=== PATIENT | female | born 1990 | race Caucasian/White ===

== ENCOUNTER → 2018-08-30 | Outpatient (CLI) | payer OTHER ==
--- NOTE | 2018-08-30 16:36 | Diagnostic Imaging Report ---
PROCEDURE: MR angiography of the brain without the use of contrast. TECHNIQUE: 3D [id number] non contrast enhanced MR angiography of the head was performed. A source data was reformatted into rotating MIP projections. INDICATION: Migraine headaches and family history of aneurysms. COMPARISON: No prior MRA studies are available for comparison. FINDINGS: Distal internal carotid arteries are unremarkable. Distal vertebral arteries and basilar artery are unremarkable. The basilar tip is unremarkable. Anterior communicating artery is unremarkable. There are no aneurysms detected. MCAs are unremarkable. No stenosis is identified. IMPRESSION: Unremarkable MRA of the brain. Dictated by: Dictated on workstation # [id number]
== END ==
LOC: RAD 15:25
PROVIDERS: ATTEND Pediatrics
DX: G44.049 Chronic paroxysmal hemicrania, not intractable (principal); Z82.49 Family history of ischemic heart disease and other diseases of the circulatory system
CPT/HCPCS: 70544

== ENCOUNTER 2019-09-12 15:22 | Emergency (ER) | payer SELFPAY ==
[~2019-09-12] VITALS: Ht 160 cm; Wt 59.1 kg
--- NOTE | 2019-09-12 15:57 | ED Headache ---
General Stated Complaint: MIGRAINE,FAINTING Source: patient Exam Limitations: no limitations History of Present Illness Date Seen by Provider: September 12, 2019 Time Seen by Provider: 15:40 Initial Comments The patient is a pleasant 29-year-old female who is 23 weeks who presents for evaluation of a headache and possible fainting episode. She states that she has a history of chronic migraines and has had a migraine since earlier this morning which began gradually. She reports some sensitivity to light. At one point today she went to the bathroom and woke up to her family trying to wake her up while she laid on the bathroom floor. The right side of her head was somewhat sore and she believes that she hit her head on the side of the bathtub. She has had other migraines during this but did not seek medical treatment for them. She has had syncopal episodes during some of her previous pregnancies as well. She reports some mild nausea but no vomiting. She drove herself to the emergency department today. Timing/Duration: other (8 hours) Severity/Quality: moderate Location: temporal (right) Prior Headaches/Recent Trauma: frequent headaches, chronic headaches, head trauma < 24 hrs ago (hours after headache started) Modifying Factors: improves with exposure to light (makes it worse) Associated Symptoms: No confusion; fatigue; No fever/chills; loss of c onsciousness (she "thinks so"), nausea/vomiting (nausea, no vomiting); No numbness in legs/feet, No seizures, No stiff neck, No vision changes, No weakness Allergies and Home Medications Allergies Coded Allergies: codeine (Verified Allergy, Unknown, 09/12/19) Patient Home Medication List Home Medication List Reviewed: Yes Review of Systems Review of Systems Constitutional: no symptoms reported Eyes: No Symptoms Reported Ears, Nose, Mouth, Throat: no symptoms reported Respiratory: no symptoms reported Cardiovascular: syncope (suspected) Gastrointestinal: nausea; No vomiting Genitourinary: no symptoms reported Musculoskeletal: no symptoms reported Skin: no symptoms reported Psychiatric/Neurological: Headache All Other Systems Reviewed Negative Unless Noted: Yes Past Tdlacpl-Mzltuf-Pgidyd Hx Past Med/Social Hx: Reviewed Nursing Past Med/Soc Hx Patient Social History Recent Foreign Travel: No Contact w/Someone Who Travel: No Physical Exam Vital Signs Vital Signs - First Documented 09/12/19 15:30 Temp 36.7 Pulse 75 Resp 16 B/P (MAP) 103/52 (69) Pulse Ox 98 O2 Delivery Room Air Capillary Refill : Height, Weight, BMI Height: '" Weight: lbs. oz. kg; BMI Method: General Appearance: WD/WN, no apparent distress HEENT: PERRL/EOMI, normal ENT inspection, pharynx normal Neck: full range of motion, supple, tender lateral (right paraspinal); No tender midline Cardiovascular: regular rate, rhythm, no edema, no JVD Gastrointestinal: normal bowel sounds, non tender, soft, other (gravid abdomen consistent with dates) Back: normal inspection, no CVA tenderness, no vertebral tenderness Extremities: normal range of motion, non-tender, no pedal edema Psychiatric: alert, oriented x 3 Crainal Nerves: normal hearing, normal speech, PERRL Motor/Sensory: no motor deficit, no sensory deficit, no pronator drift Skin: normal color, warm/dry Progress/Results/Core Measures Results/Orders Lab Results Laboratory Tests Test 09/12/19 15:30 09/12/19 15:50 Range/Units Urine Color YELLOW Urine Clarity SL CLOUDY Urine pH 6.0 5-9 Urine Specific [place] 1.020 1.016-1.022 Urine Protein NEGATIVE NEGATIVE Urine Glucose (UA) NEGATIVE NEGATIVE Urine Ketones 2+ H NEGATIVE Urine Nitrite NEGATIVE NEGATIVE Urine Bilirubin NEGATIVE NEGATIVE Urine Urobilinogen 0.2 < = 1.0 MG/DL Urine Leukocyte Esterase 3+ H NEGATIVE Urine RBC (Auto) NEGATIVE NEGATIVE Urine RBC NONE /HPF Urine WBC 50-100 H /HPF Urine Squamous Epithelial Cells 25-50 H /HPF Urine Crystals NONE /LPF Urine Bacteria MODERATE H /HPF Urine Casts NONE /LPF Urine Mucus MODERATE H /LPF Urine Culture Indicated YES White Blood Count 10.8 4.3-11.0 10^3/uL Red Blood Count 3.94 L 4.35-5.85 10^6/uL Hemoglobin 11.6 11.5-16.0 G/DL Hematocrit 34 L 35-52 % Mean Corpuscular Volume 87 80-99 FL Mean Corpuscular Hemoglobin 29 25-34 PG Mean Corpuscular Hemoglobin Concent 34 32-36 G/DL Red Cell Distribution Width 14.3 10.0-14.5 % Platelet Count 205 130-400 10^3/uL Mean Platelet Volume 11.5 H 7.4-10.4 FL Neutrophils (%) (Auto) 84 H 42-75 % Lymphocytes (%) (Auto) 12 12-44 % Monocytes (%) (Auto) 4 0-12 % Eosinophils (%) (Auto) 1 0-10 % Basophils (%) (Auto) 0 0-10 % Neutrophils # (Auto) 9.1 H 1.8-7.8 X 10^3 Lymphocytes # (Auto) 1.3 1.0-4.0 X 10^3 Monocytes # (Auto) 0.8 0.0-1.0 X 10^3 Eosinophils # (Auto) 0.1 0.0-0.3 10^3/uL Basophils # (Auto) 0.0 0.0-0.1 10^3/uL Sodium Level 137 135-145 MMOL/L Potassium Level 3.8 3.6-5.0 MMOL/L Chloride Level 103 98-107 MMOL/L Carbon Dioxide Level 21 21-32 MMOL/L Anion Gap 13 5-14 MMOL/L Blood Urea Nitrogen 6 L 7-18 MG/DL Creatinine 0.41 L 0.60-1.30 MG/DL Estimat Glomerular Filtration Rate > 60 BUN/Creatinine Ratio 15 Glucose Level 77 70-105 MG/DL Calcium Level 8.3 L 8.5-10.1 MG/DL Corrected Calcium 8.7 8.5-10.1 MG/DL Total Bilirubin 0.3 0.1-1.0 MG/DL Aspartate Amino Transf (AST/SGOT) 14 5-34 U/L Alanine Aminotransferase (ALT/SGPT) 7 0-55 U/L Alkaline Phosphatase 66 40-136 U/L Total Protein 6.2 L 6.4-8.2 GM/DL Albumin 3.5 3.2-4.5 GM/DL My Orders Orders - WAI BUSH DO Ct Head/Cervical Spine Wo (09/12/19 15:49) Cbc With Automated Diff (09/12/19 15:49) Comprehensive Metabolic Panel (09/12/19 15:49) Ua Culture If Indicated (09/12/19 15:49) Ns Iv 1000 Ml (Sodium Chloride 0.9%) (09/12/19 16:00) Metoclopramide Injection (Reglan Injecti (09/12/19 16:00) Diphenhydramine Injection (Benadryl Inje (09/12/19 16:00) Acetaminophen Tablet (Tylenol Tablet) (09/12/19 16:00) Urine Culture (09/12/19 15:30) Ekg Tracing (09/12/19 16:27) Medications Given in ED Current Medications Medications Dose Ordered Sig/Sonali Route Start Time Stop Time Status Last Admin Dose Admin Acetaminophen 1,000 mg ONCE ONCE PO 09/12/19 16:00 09/12/19 16:02 DC 09/12/19 16:15 1,000 MG Diphenhydramine HCl 25 mg ONCE ONCE IVP 09/12/19 16:00 09/12/19 16:02 DC 09/12/19 16:15 25 MG Metoclopramide HCl 10 mg ONCE ONCE IVP 09/12/19 16:00 09/12/19 16:02 DC 09/12/19 16:15 10 MG Vital Signs/I&O 09/12/19 15:30 Temp 36.7 Pulse 75 Resp 16 B/P (MAP) 103/52 (69) Pulse Ox 98 O2 Delivery Room Air Progress Progress Note : Progress Note @9775 - the patient states that she would like to leave AGAINST MEDICAL ADVICE at this time. She understands that her CT head and neck have not been reviewed by the radiologist. Her lab results are unremarkable other than showing a possible UTI versus possible contaminated specimen. She will go home with a prescription for Macrobid. Advised the patient to follow-up with her FIELD OPERATIONS FARM MANAGER/PCP in the next 1-2 days and to return to the emergency Department immediately for new or worsening symptoms. She understands that she can return to the emergency department at any time. Departure Impression Primary Impression: Migraine Additional Impressions: Syncope UTI (urinary tract infection) Disposition: 07 AGAINST MEDICAL ADVICE Condition: Stable Departure-Patient Inst. Decision time for Depature: 16:47 Referrals: JON COULTER MD (PCP/Family) Primary Care Physician Patient Instructions: Migraines (DC), Syncope (Fainting), Urinary Tract Infection, Adult (DC) Add. Discharge Instructions: Although you chose to leave AGAINST MEDICAL ADVICE today you can return to the emergency department at any time. Follow-up with your doctor or your FIELD OPERATIONS FARM MANAGER in the next 1-2 days. Return to the emergency Department immediately for new or worsening symptoms. Take the prescribed medicine as directed. Drink plenty of water at home. Scripts Nitrofurantoin Monohyd/M-Cryst (Macrobid 100 mg Capsule) 100 Mg Capsule 1 TAB PO BID for 5 Days, #10 CAP Prov: WAI BUSH DO 09/12/19 WAI BUSH DO September 12, 2019 15:57
[2019-09-12] MEDS ORDERED: diphenhydrAMINE 50 MG/ML INJ (BENADRYL) IVP ONE (16:00)
[2019-09-12] MEDS ORDERED: METOCLOPRAMIDE INJ 10 MG/2 ML (REGLAN) IVP ONE (16:00)
[2019-09-12] MEDS ORDERED: ACETAMINOPHEN 500 MG TAB (TYLENOL) PO ONE (16:00)
[2019-09-12] MEDS ORDERED: NS IV 1000 ML 1,000 ML IV SCH (16:00)
[2019-09-12 16:05] LABS: BASOPHILS % (AUTO) 0 % (0-10); EOSINOPHILS # (AUTO) 0.1 10^3/uL (0.0-0.3); EOSINOPHILS % (AUTO) 1 % (0-10); HEMATOCRIT 34 % (35-52); HEMOGLOBIN 11.6 G/DL (11.5-16.0); LYMPHOCYTES # (AUTO) 1.3 X 10^3 (1.0-4.0); LYMPHOCYTES % (AUTO) 12 % (12-44); MEAN CORPUSCULAR HEMOGLOBIN 29 PG (25-34); MEAN CORPUSCULAR HGB CONC 34 G/DL (32-36); MEAN CORPUSCULAR VOLUME 87 FL (80-99); MEAN PLATELET VOLUME 11.5 FL (7.4-10.4); MONOCYTES # (AUTO) 0.8 X 10^3 (0.0-1.0); MONOCYTES % (AUTO) 4 % (0-12); NEUTROPHILS # (AUTO) 9.1 X 10^3 (1.8-7.8); NEUTROPHILS % (AUTO) 84 % (42-75); PLATELET COUNT 205 10^3/uL (130-400); RED CELL DISTRIBUTION WIDTH 14.3 % (10.0-14.5); WHITE BLOOD COUNT 10.8 10^3/uL (4.3-11.0)
[2019-09-12 16:09] LABS: BACTERIA,URINE MODERATE /HPF; BILIRUBIN,URINE NEGATIVE (NEGATIVE); CLARITY,URINE SL CLOUDY; COLOR,URINE YELLOW; GLUCOSE, URINE (UA) NEGATIVE (NEGATIVE); KETONES,URINE 2+ (NEGATIVE); LEUKOCYTE ESTERASE ,URINE 3+ (NEGATIVE); NITRITE,URINE NEGATIVE (NEGATIVE); PROTEIN,URINE NEGATIVE (NEGATIVE); SQUAMOUS EPITHELIAL CELL,UR 25-50 /HPF; WBC,URINE 50-100 /HPF
[2019-09-12 16:24] LABS: ALANINE AMINOTRANSFERASE 7 U/L (0-55); ALKALINE PHOSPHATASE 66 U/L (40-136); BILIRUBIN,TOTAL 0.3 MG/DL (0.1-1.0); BUN/CREATININE RATIO 15; CALCIUM 8.3 MG/DL (8.5-10.1); CARBON DIOXIDE 21 MMOL/L (21-32); CHLORIDE 103 MMOL/L (98-107); CREATININE SERUM 0.41 MG/DL (0.60-1.30); GFR ESTIMATED > 60; GLUCOSE 77 MG/DL (70-105); POTASSIUM 3.8 MMOL/L (3.6-5.0); SODIUM 137 MMOL/L (135-145); TOTAL PROTEIN 6.2 GM/DL (6.4-8.2)
[2019-09-12 16:25] LABS: ALBUMIN 3.5 GM/DL (3.2-4.5)
--- NOTE | 2019-09-12 16:35 | NUR ---
Patient called this RN into room and stated "I just want to go home." Patient informed that EKG and heart tones had not yet been completed and CT results were not back. Asked patient if she was feeling worse than before, and patient stated ,"No, I just want to go home." Informed patient that if she left now she would be leaving against medical advice and advised patient on risks of doing so. Patient verbalized understanding of risks of leaving AMA. Dr. Marsh informed of patient's decision, prescription for macrobid printed and given to patient prior to her departure from the ED. IV removed, patient signed AMA form and left the ED ambulatory.
[2019-09-12 16:43] VITALS: BP 95/57
[2019-09-12] MEDS ORDERED: NITR-65 PO (16:49)
--- NOTE | 2019-09-12 17:10 | Diagnostic Imaging Report ---
PROCEDURE: CT head and CT cervical spine without contrast. TECHNIQUE: Multiple contiguous axial images were obtained through the brain and cervical spine without the use of intravenous contrast. Sagittal and coronal reformations through the cervical spine were then performed. Auto Exposure Controls were utilized during the CT exam to meet ALARA standards for radiation dose reduction. INDICATION: Syncopal episode and fall striking the posterior aspect of the head. COMPARISON: No prior CT is available for comparison. FINDINGS: CT head: Ventricles and sulci are within normal limits. No sulcal effacement or midline shift is identified. No acute intra-axial or extra-axial hemorrhage is detected. Cisterns are patent. Visualized paranasal sinuses are clear apart from some mucosal thickening of right-sided ethmoid air cells. IMPRESSION: Paranasal sinus disease. No acute intracranial process is detected. CT cervical spine: Alignment is normal. No fracture or subluxation is identified. Prevertebral tissues are within normal limits. Odontoid is intact. IMPRESSION: No acute bony abnormality is detected. Dictated by: Dictated on workstation # [id number]
--- OUTSIDE RECORDS SUMMARY | 2019-09-12 19:55 | XMS REPORT | Summary of Care ---
Author Author [facility] er Organization [facility] er Address Unknown Phone Unavailable Care Team Providers Care Optometry Professor Name Role Phone JON COULTER MD PCP PCP MD, NO PCP Unavailable Encounter [facility] [id number] Date(s): 07/30/17 - 07/30/[address] [address] Discharge Disposition: Home - 01 Attending Physician: CHAYITO MENDEZ MD Admitting Physician: CHAYITO MENDEZ MD Vital Signs Most recent to 1 oldest [Reference Range]: Vital Signs Routine Assessment Status/Type (07/30/17 1:50 PM) Temperature 98.6 DegF [96.8-99.7 DegF] (07/30/17 1:50 PM) Temp Method Oral (07/30/17 1:50 PM) Blood Pressure 105/57 mmHg [90-180/50-90 mmHg] (07/30/17 1:50 PM) NIBP MAP Calc 73 (07/30/17 1:50 PM) Problem List Condition Effective Dates Status Health Status Informan t (Confirmed) 07/30/17 Active (Confirmed) 12/05/12 - 01/24/13 Resolved 1 (Confirmed) < 04/25/10 Resolved 1Added by Discern Expert Allergies, Adverse Reactions, Alerts Substance Reaction Severity Status codeine chest pain Active Medications cyclobenzaprine 5 mg oral tablet 1-2 tab, PO, Q8H (Every 8 hours), PRN Moderate Pain, # 20 TAB, 0 Refill(s), Rosalind cation: Moderate Pain, Pharmacy: [facility] [id number] Start Date: 07/30/17 Stop Date: 08/06/17 Status: Ordered Results HEMATOLOGY Most recent to 1 oldest [Reference Range]: WBC [4.0-11.0 8.5 x10'3/microL x10'3/microL] (07/30/17 1:43 PM) RBC [3.90-5.60 3.32 x10'6/microL x10'6/microL] *LOW* (07/30/17 1:43 PM) Hgb [12.0-16.0 g/dL] 9.7 g/dL *LOW* (07/30/17 1:43 PM) Hct [35-47 %] 30 % *LOW* (07/30/17 1:43 PM) Platelet [140-400 196 x10'3/microL x10'3/microL] (07/30/17 1:43 PM) MCV [81-99 fL] 90 fL (07/30/17 1:43 PM) MCH [27-34 pg] 29 pg (07/30/17 1:43 PM) MCHC [30-36 g/dL] 33 g/dL (07/30/17 1:43 PM) RDW [<=16.4 %] 13.0 % (07/30/17 1:43 PM) MPV [6.5-10.4 fL] 10.6 fL *HI* (07/30/17 1:43 PM) Neutrophils % [44-76 79 % %] *HI* (07/30/17 1:43 PM) Lymphocytes % [13-43 13 % %] (07/30/17 1:43 PM) Monocytes % [0-13 %] 7 % (07/30/17 1:43 PM) Eosinophils % [0-7 1 % %] (07/30/17 1:43 PM) Basophils % [0-3 %] 0 % (07/30/17 1:43 PM) Neutrophils Abs 6.7 x10'3/microL [1.4-7.2 (07/30/17 1:43 PM) x10'3/microL] Lymphocytes Abs 1.1 x10'3/microL [1.2-3.4 *LOW* x10'3/microL] (07/30/17 1:43 PM) Monocytes Abs 0.6 x10'3/microL [0.1-0.6 (07/30/17 1:43 PM) x10'3/microL] Eosinophils Abs 0.1 x10'3/microL [0.0-0.5 (07/30/17 1:43 PM) x10'3/microL] Basophils Abs 0.0 x10'3/microL [0.0-0.2 (07/30/17 1:43 PM) x10'3/microL] Immature Grans Abs 0.0 x10'3/microL [0.0-0.0 (07/30/17 1:43 PM) x10'3/microL] Immature 0 % Granulocytes % [0-0 (07/30/17 1:43 PM) %] URINE Most recent to 1 oldest [Reference Range]: UA Color Yellow (07/30/17 1:43 PM) UA pH [5.0-8.0] 6.0 (07/30/17 1:43 PM) UA Spec Grav 1.015 [1.001-1.030] (07/30/17 1:43 PM) UA Glucose [Negative Negative mg/dL mg/dL] (07/30/17 1:43 PM) UA Bili [Negative] Negative (07/30/17 1:43 PM) UA Ketones [Negative Negative mg/dL mg/dL] (07/30/17 1:43 PM) UA Blood [Negative] Negative (07/30/17 1:43 PM) UA Protein [Negative Negative mg/dL mg/dL] (07/30/17 1:43 PM) UA Nitrite Negative [Negative] (07/30/17 1:43 PM) UA Leuk Est Positive [Negative] *ABN* (07/30/17 1:43 PM) UA Urobilinogen 0.2 EU per dL [0.2-1.0 EU per dL] (07/30/17 1:43 PM) UA Spec Type Clean Catch (07/30/17 1:43 PM) UA WBC [0-5 /hpf] 0-5 /hpf (07/30/17 1:43 PM) UA Epithelial Few /hpf [Negative to Few (07/30/17 1:43 PM) /hpf] Microscopic? Yes *ABN* (07/30/17 1:43 PM) Culture? No (07/30/17 1:43 PM) Immunizations Given and Recorded Vaccine Date Status Refusal Reason diphtheria/pertussis, acel/tetanus adult 04/28/10 Given Procedures No data available for this section Social History No data available for this section Functional Status No data available for this section Assessment and Plan No data available for this section Hospital Discharge Instructions No data available for this section
--- OUTSIDE RECORDS SUMMARY | 2019-09-12 19:55 | XMS REPORT | Summary of Care ---
Author Author [facility] er Organization [facility] er Address Unknown Phone Unavailable Care Team Providers Care Director Of Field Service Name Role Phone JON COULTER MD PCP PCP MD, NO PCP Unavailable Encounter [facility] [id number] Date(s): 07/30/17 - 07/30/[address] [address] Discharge Disposition: Home - 01 Attending Physician: [...] 0 Refill(s), Rosalind cation: Moderate Pain, Pharmacy: [facility] [id number] Start Date: 07/30/17 Stop Date: 08/06/17 Status: [...]
--- OUTSIDE RECORDS SUMMARY | 2019-09-12 19:55 | XMS REPORT | Summary of Care ---
Author Author [facility] er Organization [facility] er Address Unknown Phone Unavailable Care Team Providers Care Survival Equipment Repairer Name Role Phone JON COULTER MD PCP PCP MD, NO PCP Unavailable Encounter [facility] [id number] Date(s): 08/06/17 - 08/06/[address] [address] Encounter Diagnosis Encounter for other suspected maternal and conditions ruled out (Final) - 29 weeks gestation of (Final) - Discharge Disposition: Home - 01 Attending Physician: CHAYITO MENDEZ MD Admitting Physician: CHAYITO MENDEZ MD Vital Signs Most recent to 1 oldest [Reference Range]: Vital Signs Routine Assessment Status/Type (08/06/17 4:13 PM) Temperature 98.3 DegF [96.8-99.7 DegF] (08/06/17 4:13 PM) Temp Method Oral (08/06/17 4:13 PM) Heart Rate 80 bpm (08/06/17 4:13 PM) Respiratory Rate 16 br/min [15-20 br/min] (08/06/17 4:13 PM) Blood Pressure 93/58 mmHg [90-180/50-90 mmHg] (08/06/17 4:13 PM) NIBP MAP Calc 70 (08/06/17 4:13 PM) Problem List Condition Effective Dates Status Health Status Informan t (Confirmed) 07/30/17 Active (Confirmed) 12/05/12 - 01/24/13 Resolved 1 (Confirmed) < 04/25/10 Resolved 1Added by Discern Expert Allergies, Adverse Reactions, Alerts Substance Reaction Severity Status codeine chest pain Active Medications No Known Medications Results URINE Most recent to 1 oldest [Reference Range]: UA Color Yellow (08/06/17 1:44 PM) UA pH [5.0-8.0] 6.0 (08/06/17 1:44 PM) UA Spec Grav 1.015 [1.001-1.030] (08/06/17 1:44 PM) UA Glucose [Negative Negative mg/dL mg/dL] (08/06/17 1:44 PM) UA Bili [Negative] Negative (08/06/17 1:44 PM) UA Ketones [Negative Negative mg/dL mg/dL] (08/06/17 1:44 PM) UA Blood [Negative] Negative (08/06/17 1:44 PM) UA Protein [Negative Negative mg/dL mg/dL] (08/06/17 1:44 PM) UA Nitrite Negative [Negative] (08/06/17 1:44 PM) UA Leuk Est Positive [Negative] *ABN* (08/06/17 1:44 PM) UA Urobilinogen 0.2 EU per dL [0.2-1.0 EU per dL] (08/06/17 1:44 PM) UA Spec Type Clean Catch (08/06/17 1:44 PM) UA WBC [0-5 /hpf] 0-5 /hpf (08/06/17 1:44 PM) UA Epithelial Few /hpf [Negative to Few (08/06/17 1:44 PM) /hpf] UA Mucous [None Present Seen] *ABN* (08/06/17 1:44 PM) Microscopic? Yes *ABN* (08/06/17 1:44 PM) Culture? No (08/06/17 1:44 PM) Immunizations Given and Recorded Vaccine Date Status Refusal Reason diphtheria/pertussis, acel/tetanus adult 04/28/10 Given Procedures No data available for this section Social History No data available for this section Functional Status No data available for this section Assessment and Plan No data available for this section Hospital Discharge Instructions No data available for this section
--- OUTSIDE RECORDS SUMMARY | 2019-09-12 19:55 | XMS REPORT | Summary of Care ---
Author Author [facility] er Organization [facility] er Address Unknown Phone Unavailable Care Team Providers Care Fire Safety Manager Name Role Phone JON COULTER MD PCP PCP , NO PCP Unavailable Encounter [facility] [id number] Date(s): 07/30/17 - 07/30/[address] [address] Encounter Diagnosis Other specified diseases and conditions complicating , childbirth and t he puerperium (Final) - Unspecified abdominal pain (Final) - 28 weeks gestation of (Final) - Discharge Disposition: [...] 0 Refill(s), Rosalind cation: Moderate Pain, Pharmacy: [facility] [id number] Start Date: 07/30/17 Stop Date: 08/06/17 Status: [...]
--- OUTSIDE RECORDS SUMMARY | 2019-09-12 19:55 | XMS REPORT | Summary of Care ---
Author Author [facility] er Organization [facility] er Address Unknown Phone Unavailable Care Team Providers Care Training Project Manager Name Role Phone JON COULTER MD PCP PCP , NO PCP Unavailable Encounter [facility] [id number] Date(s): 07/30/17 - 07/30/[address] [address] Encounter Diagnosis Other specified diseases and conditions [...] 0 Refill(s), Rosalind cation: Moderate Pain, Pharmacy: [facility] [id number] Start Date: 07/30/17 Stop Date: 08/06/17 Status: [...]
--- OUTSIDE RECORDS SUMMARY | 2019-09-12 19:55 | XMS REPORT | Summary of Care ---
Author Author [facility] er Organization [facility] er Address Unknown Phone Unavailable Care Team Providers Care Course Developer Name Role Phone JON COULTER MD PCP PCP MD, NO PCP Unavailable Encounter [facility] [id number] Date(s): 07/30/17 - 07/30/[address] [address] Discharge Disposition: Home - 01 Attending [...] 0 Refill(s), Rosalind cation: Moderate Pain, Pharmacy: [facility] [id number] Start Date: 07/30/17 Stop Date: 08/06/17 Status: [...]
--- OUTSIDE RECORDS SUMMARY | 2019-09-12 19:55 | XMS REPORT | CCD ---
Author Author [facility]HAEL [facility] er Address Unknown Phone Unavailable Care Team Providers Care Gospel Worker Name Role Phone SHAHRZAD RAI, JENNIFER Meneses CP [phone] PCP MD, NO PP Unavailable REFERRING MD, NO RP Unavailable Allergies, Adverse Reactions, Alerts Substance Reaction Status NKA Active Problem List Condition Effective Dates Status Pregnancy1 Active 1Added by Discern Expert Medications Medication Instructions Start Date End Date Status Lortab 5/500 1 TAB, PO, Q3H (Every 3 hours), PRN 04/28/2010 Ordered as needed for pain, # 30 TAB, 04/28/10 15:48:02 naproxen sodium 550 = 1 TAB, PO, Q8H (Every 8 hours), 011 Ordered mg oral tablet, PRN as needed for pain, # 2 0 TAB, extended release 04/28/10 15:47:47 Adacel 0.5 mL, SUSP, IM, ONE-TIME, 04/26/2010 04/28/2010 Completed 04/26/10 0:00:00 multivitamin, 1 TAB, PO, QDAY, TAB, 03/04/10 03/04/2010 Ordered 13:07:42 Immunizations Vaccine Date Status diphtheria/pertussis, acel/tetanus adult 04/28/2010 Auth (Verified) Vital Signs Most recent to oldest [Reference Range]: 1 Temperature [96.8-99.7 DegF] 97.1 DegF (04/28/2010 08:00:00) Temp Method Probe (04/28/2010 08:00:00) Heart Rate 79 bpm (04/28/2010 08:00:00) Heart Rate Location Auto BP (04/28/2010 08:00:00) Respiratory Rate [14-20 br/min] 18 br/min (04/28/2010 08:00:00) Inet NIBP Systolic [71-219 mmHg] 97 mmHg (04/28/2010 08:00:00) Inet NIBP Diastolic [50-90 mmHg] 62 mmHg (04/28/2010 08:00:00) NIBP MAP Calc 74 (04/28/2010 08:00:00) BP Location Arm, left (04/25/2010 23:25:00) Heart Rhythm Sinus/atrial rhythm (04/25/2010 23:25:00) Procedures Procedures Date Related Diagnosis Low cervical section 04/25/2010 00:00:00 Medical induction of labor 04/24/2010 00:00:00
--- OUTSIDE RECORDS SUMMARY | 2019-09-12 19:55 | XMS REPORT | CCD ---
Author Author [facility] Organization [facility] er Address Unknown Phone Unavailable Care Team Providers Care Bioinformatician Name Role Phone SHAHRZAD RAI, JENNIFER Meneses RP [phone] PCP MD, NO PP Unavailable Allergies, Adverse Reactions, Alerts Substance Reaction Status NKA Active Problem List Condition Effective Dates Status Pregnancy1 Active 1Added by Discern Expert Medications Medication Instructions Start Date End Date Status Adacel 0.5 mL, SUSP, IM, ONE-TIME, 04/26/2010 04/28/2010 Completed 04/26/10 0:00:00 Immunizations Vaccine Date Status diphtheria/pertussis, acel/tetanus adult 04/28/2010 Auth (Verified) Vital Signs Most recent to oldest [Reference Range]: 1 Temperature [96.8-99.7 DegF] 97.4 DegF (02/10/2010 22:00:00) Temp Method Oral (02/10/2010 22:00:00) Heart Rate 74 bpm (02/10/2010 22:00:00) Inet NIBP Systolic [71-219 mmHg] 117 mmHg (02/10/2010 22:00:00) Inet NIBP Diastolic [50-90 mmHg] 67 mmHg (02/10/2010 22:00:00) NIBP MAP Calc 84 (02/10/2010 22:00:00)
--- OUTSIDE RECORDS SUMMARY | 2019-09-12 19:56 | XMS REPORT | Summary of Care ---
Author Author [facility] er Organization [facility] er Address Unknown Phone Unavailable Care Team Providers Care Seed Cone Picker Name Role Phone JON COULTER MD PCP PCP , NO PCP Unavailable Encounter [facility] [id number] Date(s): 07/30/17 - 07/30/[id number] [place] [address] Encounter Diagnosis Other specified diseases and conditions [...] pain Active Medications No Known Medications Results HEMATOLOGY Most recent to 1 oldest [...]
--- OUTSIDE RECORDS SUMMARY | 2019-09-12 19:56 | XMS REPORT | Summary of Care ---
Author Author [facility] er Organization [facility] er Address Unknown Phone Unavailable Care Team Providers Care Machine Leather Trimmer Name Role Phone JON COULTER MD PCP PCP MD, NO PCP Unavailable Encounter [facility] [id number] Date(s): 08/06/17 - 08/06/[address] [address] Encounter Diagnosis Encounter for other suspected maternal [...]
--- OUTSIDE RECORDS SUMMARY | 2019-09-12 19:56 | XMS REPORT | Summary of Care ---
Author Author [facility] er Organization [facility] er Address Unknown Phone Unavailable Care Team Providers Care Plug Drill Operator Name Role Phone JON COULTER MD PCP PCP , NO PCP Unavailable Encounter [facility] [id number] Date(s): 08/13/17 - 08/13/[id number] [place] [address] Discharge Disposition: Home - 01 Attending Physician: SENDY SUNSHINE DO Admitting Physician: SENDY SUNSHINE DO Referring Physician: SENDY SUNSHINE DO Vital Signs No data available for this section Problem List Condition Effective Dates Status Health Status Informan t (Confirmed) 07/30/17 Active (Confirmed) 12/05/12 - 01/24/13 Resolved 1 (Confirmed) < 04/25/10 Resolved 1Added by Discern Expert Allergies, Adverse Reactions, Alerts Substance Reaction Severity Status codeine chest pain Active Medications No data available for this section Results HEMATOLOGY Most recent to 1 oldest [Reference Range]: WBC [4.0-11.0 10.6 x10'3/microL x10'3/microL] (08/13/17 12:37 PM) RBC [3.90-5.60 3.48 x10'6/microL x10'6/microL] *LOW* (08/13/17 12:37 PM) Hgb [12.0-16.0 g/dL] 10.1 g/dL *LOW* (08/13/17 12:37 PM) Hct [35-47 %] 31 % *LOW* (08/13/17 12:37 PM) Platelet [140-400 182 x10'3/microL x10'3/microL] (08/13/17 12:37 PM) MCV [81-99 fL] 89 fL (08/13/17 12:37 PM) MCH [27-34 pg] 29 pg (08/13/17 12:37 PM) MCHC [30-36 g/dL] 33 g/dL (08/13/17 12:37 PM) RDW [<=16.4 %] 13.4 % (08/13/17 12:37 PM) MPV [6.5-10.4 fL] 11.4 fL *HI* (08/13/17 12:37 PM) Neutrophils % [44-76 77 % %] *HI* (08/13/17 12:37 PM) Lymphocytes % [13-43 17 % %] (08/13/17 12:37 PM) Monocytes % [0-13 %] 4 % (08/13/17 12:37 PM) Eosinophils % [0-7 1 % %] (08/13/17 12:37 PM) Basophils % [0-3 %] 0 % (08/13/17 12:37 PM) Neutrophils Abs 8.2 x10'3/microL [1.4-7.2 *HI* x10'3/microL] (08/13/17 12:37 PM) Lymphocytes Abs 1.8 x10'3/microL [1.2-3.4 (08/13/17 12:37 PM) x10'3/microL] Monocytes Abs 0.4 x10'3/microL [0.1-0.6 (08/13/17 12:37 PM) x10'3/microL] Eosinophils Abs 0.2 x10'3/microL [0.0-0.5 (08/13/17 12:37 PM) x10'3/microL] Basophils Abs 0.0 x10'3/microL [0.0-0.2 (08/13/17 12:37 PM) x10'3/microL] Immature Grans Abs 0.1 x10'3/microL [0.0-0.0 *HI* x10'3/microL] (08/13/17 12:37 PM) Immature 1 % Granulocytes % [0-0 *HI* %] (08/13/17 12:37 PM) CHEMISTRY Most recent to 1 oldest [Reference Range]: Sodium [136-145 137 mmol/L mmol/L] (08/13/17 12:37 PM) Potassium [3.5-5.1 4.0 mmol/L mmol/L] (08/13/17 12:37 PM) Chloride [98-107 102 mmol/L mmol/L] (08/13/17 12:37 PM) CO2 [22-29 mmol/L] 23 mmol/L (08/13/17 12:37 PM) AGAP [3-12 mmol/L] 12 mmol/L (08/13/17 12:37 PM) Glucose [70-100 74 mg/dL mg/dL] (08/13/17 12:37 PM) BUN [8-20 mg/dL] 7 mg/dL *LOW* (08/13/17 12:37 PM) Creatinine [0.7-1.2 0.3 mg/dL mg/dL] *LOW* (08/13/17 12:37 PM) Calcium [8.6-10.2 8.2 mg/dL mg/dL] *LOW* (08/13/17 12:37 PM) Est CrCL (CG) 235.0 mL/min 1 (08/13/17 12:37 PM) GFR (CKD-EPI) >110.0 mL/min/1.73 m2 2 *NA* (08/13/17 12:37 PM) Magnesium [1.6-2.6 2.1 mg/dL mg/dL] (08/13/17 12:37 PM) 1Result Comment: Estimated Creatinine Clearance calculated based on the Cockcroft-Gault formula. 2Result Comment: GFR calculated based on CKD-EPI Creatinine Equation (2009). Age(years) Average GFR 20-29 116 mL/min/1.73 m^2 30-39 107 mL/min/1.73 m^2 40-49 99 mL/min/1.73 m^2 50-59 93 mL/min/1.73 m^2 60-69 85 mL/min/1.73 m^2 70+ 75 mL/min/1.73 m^2 Acceptable GFR =>60 mL/min/1.73 m^2 Chronic Kidney Disease <60 mL/min/1.73 m^2 Kidney Failure <15 mL/min/1.73 m^2 ENDOCRINE/TUMOR MARKER Most recent to 1 oldest [Reference Range]: TSH [0.27-4.20 1.18 microInter.Units/mL microInter.Units/mL] (08/13/17 12:37 PM) T4 Free [0.9-1.7 1.1 ng/dL ng/dL] (08/13/17 12:37 PM) T3 Free [2.4-4.2 2.4 pg/mL 1 pg/mL] *NA* (08/13/17 12:37 PM) 1Result Comment: REFERENCE INTERVAL: Triiodothyronine, Free (Free T3) Access complete set of age- and/or gender-specific reference intervals for this test in the [facility] Test Directory ([employer]). Performed by [employer], [address] [place] [id number] www.[employer], Tavares Scott MD - Lab. Director Immunizations Given and Recorded Vaccine Date Status Refusal Reason diphtheria/pertussis, acel/tetanus adult 04/28/10 Given Procedures No data available for this section Social History No data available for this section Functional Status No data available for this section Assessment and Plan No data available for this section Hospital Discharge Instructions No data available for this section
--- OUTSIDE RECORDS SUMMARY | 2019-09-12 19:56 | XMS REPORT | Summary of Care ---
Author Author [facility] er Organization [facility] er Address Unknown Phone Unavailable Care Team Providers Care Fern Gatherer Name Role Phone JON COULTER MD PCP PCP MD, NO PCP Unavailable Encounter [facility] [id number] Date(s): 08/06/17 - 08/06/[address] [address] Encounter Diagnosis Encounter for other suspected maternal [...]
--- OUTSIDE RECORDS SUMMARY | 2019-09-12 19:56 | XMS REPORT | Summary of Care ---
Author Author [facility] er Organization [facility] er Address Unknown Phone Unavailable Care Team Providers Care Neonatal Specialist Name Role Phone JON COULTER MD PCP PCP MD, NO PCP Unavailable Encounter [facility] [id number] Date(s): 08/06/17 - 08/06/[address] [address] Discharge Disposition: Home - 01 [...]
--- OUTSIDE RECORDS SUMMARY | 2019-09-12 19:56 | XMS REPORT | Summary of Care ---
Author Author [facility] er Organization [facility] er Address Unknown Phone Unavailable Care Team Providers Care Nutrition Services Aide Name Role Phone JON COULTER MD PCP PCP , NO PCP Unavailable Encounter [facility] [id number] Date(s): 07/30/17 - 07/30/[id number] [place] [address] Encounter Diagnosis Other specified diseases and conditions [...]
--- OUTSIDE RECORDS SUMMARY | 2019-09-12 19:56 | XMS REPORT | Summary of Care ---
Author Author [facility] er Organization [facility] er Address Unknown Phone Unavailable Care Team Providers Care Internet Researcher Name Role Phone JON COULTER MD PCP PCP MD, NO PCP Unavailable Encounter [facility] [id number] Date(s): 08/06/17 - 08/06/[address] [address] Encounter Diagnosis Encounter for other [...]
--- OUTSIDE RECORDS SUMMARY | 2019-09-12 19:56 | XMS REPORT | Summary of Care ---
Author Author [facility] er Organization [facility] er Address Unknown Phone Unavailable Care Team Providers Care Digital Sales Director Name Role Phone JON COULTER MD PCP PCP , NO PCP Unavailable Encounter [facility] [id number] Date(s): 08/13/17 - 08/13/[id number] [place] [address] Discharge Disposition: Home - 01 Attending Physician: [...] reference intervals for this test in the [employer] [facility] Test Directory ([employer] Performed by [employer], [address] [place] [address] www.[employer] Tavares Scott MD - Lab. Director Immunizations [...]
--- OUTSIDE RECORDS SUMMARY | 2019-09-12 19:56 | XMS REPORT | Summary of Care ---
Author Author [facility] er Organization [facility] er Address Unknown Phone Unavailable Care Team Providers Care Mortgage Loan Reviewer Name Role Phone JON COULTER MD PCP PCP MD, NO PCP Unavailable Encounter [facility] [id number] Date(s): 08/06/17 - 08/06/[address] [address] Discharge Disposition: Home - 01 Attending [...]
--- OUTSIDE RECORDS SUMMARY | 2019-09-12 19:56 | XMS REPORT | Summary of Care ---
Author Author [facility] er Organization [facility] er Address Unknown Phone Unavailable Care Team Providers Care Marketing Underwriter Name Role Phone JON COULTER MD PCP PCP , NO PCP Unavailable Encounter [facility] [id number] Date(s): 07/30/17 - 07/30/[phone] [place] [address] Encounter Diagnosis Other specified diseases and conditions [...]
--- OUTSIDE RECORDS SUMMARY | 2019-09-12 19:56 | XMS REPORT | Summary of Care ---
Author Author [facility] er Organization [facility] er Address Unknown Phone Unavailable Care Team Providers Care Pneumatic Riveter Name Role Phone JON COULTER MD PCP PCP , NO PCP Unavailable Encounter [facility] [id number] Date(s): 07/30/17 - 07/30/[id number] [place] [address] Encounter Diagnosis Other specified diseases and conditions [...]
--- OUTSIDE RECORDS SUMMARY | 2019-09-12 19:56 | XMS REPORT | Summary of Care ---
Author Author [facility] er Organization [facility] er Address Unknown Phone Unavailable Care Team Providers Care Aquatics Specialist Name Role Phone JON COULTER MD PCP PCP MD, NO PCP Unavailable Encounter [facility] [id number] Date(s): 08/06/17 - 08/06/[address] [address] Discharge Disposition: Home - 01 [...]
--- OUTSIDE RECORDS SUMMARY | 2019-09-12 19:56 | XMS REPORT | Summary of Care ---
Author Author [facility] er Organization [facility] er Address Unknown Phone Unavailable Care Team Providers Care Laborer Hoisting Name Role Phone JON COULTER MD PCP PCP MD, NO PCP Unavailable Encounter [facility] [id number] Date(s): 08/06/17 - 08/06/[address] [address] Encounter Diagnosis Encounter for other [...]
--- OUTSIDE RECORDS SUMMARY | 2019-09-12 19:56 | XMS REPORT | Summary of Care ---
Author Author [facility] er Organization [facility] er Address Unknown Phone Unavailable Care Team Providers Care Auditor Internal Name Role Phone JON COULTRE MD PCP PCP , NO PCP Unavailable Encounter [facility] [id number] Date(s): 07/30/17 - 07/30/[address] [address] Encounter Diagnosis Other [...] 0 Refill(s), Rosalind cation: Moderate Pain, Pharmacy: [facility] [id number] Start Date: 07/30/17 Stop Date: 08/06/17 Status: [...]
--- OUTSIDE RECORDS SUMMARY | 2019-09-12 19:56 | XMS REPORT | Summary of Care ---
Author Author [facility] er Organization [facility] er Address Unknown Phone Unavailable Care Team Providers Care Chauffeur Name Role Phone JON COULTER MD PCP PCP MD, NO PCP Unavailable Encounter [facility] [id number] Date(s): 08/06/17 - 08/06/[address] [address] Encounter Diagnosis Encounter for [...]
--- OUTSIDE RECORDS SUMMARY | 2019-09-12 19:56 | XMS REPORT | Summary of Care ---
Author Author [facility] er Organization [facility] er Address Unknown Phone Unavailable Care Team Providers Care General Internist Name Role Phone JON COULTER MD PCP PCP MD, NO PCP Unavailable Encounter [facility] [id number] Date(s): 08/06/17 - 08/06/[address] [address] Encounter Diagnosis Encounter for [...]
--- OUTSIDE RECORDS SUMMARY | 2019-09-12 19:57 | XMS REPORT | Summary of Care ---
Author Author [facility] er Organization [facility] er Address Unknown Phone Unavailable Care Team Providers Care Tugboat Operator Name Role Phone JON COULTER MD PCP PCP , NO PCP Unavailable Encounter [facility] [id number] Date(s): 09/03/17 - 09/03/[phone] [place] [address] Encounter Diagnosis Syncope and collapse (Final) - Discharge Disposition: Home - 01 [...] No data available for this section Results No data available for this section Immunizations Given and Recorded Vaccine Date Status Refusal Reason diphtheria/pertussis, acel/tetanus adult 04/28/10 Given Procedures No data available for this section Social History No data available for this section Functional Status No data available for this section Assessment and Plan No data available for this section Hospital Discharge Instructions No data available for this section
--- OUTSIDE RECORDS SUMMARY | 2019-09-12 19:57 | XMS REPORT | Summary of Care ---
Author Author [facility] er Organization [facility] er Address Unknown Phone Unavailable Care Team Providers Care Sander Operator Name Role Phone JON COULTER MD PCP PCP , NO PCP Unavailable Encounter [facility] [id number] Date(s): 09/03/17 - 09/03/[phone] [place] [address] Encounter Diagnosis Syncope and collapse (Final) - [...]
--- OUTSIDE RECORDS SUMMARY | 2019-09-12 19:57 | XMS REPORT | Summary of Care ---
Author Author [facility] er Organization [facility] er Address Unknown Phone Unavailable Care Team Providers Care Bowling Ball Grader And Marker Name Role Phone JON COULTER MD PCP PCP , NO PCP Unavailable Encounter [facility] [id number] Date(s): 09/03/17 - 09/03/[address] [address] Encounter Diagnosis Syncope and collapse (Final) - [...]
--- OUTSIDE RECORDS SUMMARY | 2019-09-12 19:57 | XMS REPORT | Summary of Care ---
Author Author [facility] er Organization [facility] er Address Unknown Phone Unavailable Care Team Providers Care Paster Hat Lining Name Role Phone JON COULTER MD PCP PCP MD, NO PCP Unavailable Encounter [facility] [id number] Date(s): 10/09/17 - 10/09/[address] [address] Discharge Disposition: Home - 01 Attending Physician: CHAYITO MENDEZ MD Admitting Physician: CHAYITO MENDEZ MD Vital Signs Most recent to 1 oldest [Reference Range]: Heart Rate 104 bpm (10/09/17 12:08 PM) Blood Pressure 116/68 mmHg [90-180/50-90 mmHg] (10/09/17 12:08 PM) NIBP MAP Calc 84 (10/09/17 12:08 PM) Problem List Condition Effective Dates Status Health Status Informan t (Confirmed) 07/30/17 Active (Confirmed) 12/05/12 - 01/24/13 Resolved 1 (Confirmed) < 04/25/10 Resolved 1Added by Discern Expert Allergies, Adverse Reactions, Alerts Substance Reaction Severity Status codeine chest pain Active Medications No Known Medications Results CHEMISTRY Most recent to 1 oldest [Reference Range]: ROM Protein Negative [Negative] (10/09/17 12:13 PM) Immunizations Given and Recorded Vaccine Date Status Refusal Reason diphtheria/pertussis, acel/tetanus adult 04/28/10 Given Procedures No data available for this section Social History No data available for this section Functional Status No data available for this section Assessment and Plan No data available for this section Hospital Discharge Instructions No data available for this section
--- OUTSIDE RECORDS SUMMARY | 2019-09-12 19:57 | XMS REPORT | Summary of Care ---
Author Author [facility] er Organization [facility] er Address Unknown Phone Unavailable Care Team Providers Care In Flight Refueling Operator Name Role Phone JON COULTER MD PCP PCP , NO PCP Unavailable Encounter [facility] [id number] Date(s): 08/13/17 - 08/13/[id number] [place] [address] Encounter Diagnosis Syncope and collapse (Final) - Discharge Disposition: Home - 01 Attending Physician: SENYD SUNSHINE DO Admitting Physician: SENDY SUNSHINE DO [...] reference intervals for this test in the [employer] [facility] Test Directory ([employer]). Performed by [employer], [address] [place] [id number] www.[employer], Tavares Scott MD - Lab. Director Immunizations [...]
--- OUTSIDE RECORDS SUMMARY | 2019-09-12 19:57 | XMS REPORT | Summary of Care ---
Author Author [facility] er Organization [facility] er Address Unknown Phone Unavailable Care Team Providers Care Outside Plant Field Engineer Name Role Phone JON COULTER MD PCP PCP , NO PCP Unavailable Encounter [facility] [id number] Date(s): 09/03/17 - 09/03/[address] [address] Discharge Disposition: Home - 01 Attending [...]
--- OUTSIDE RECORDS SUMMARY | 2019-09-12 19:57 | XMS REPORT | Summary of Care ---
Author Author [facility] er Organization [facility] er Address Unknown Phone Unavailable Care Team Providers Care Water Safety Teacher Name Role Phone JON COULTER MD PCP PCP , NO PCP Unavailable Encounter [facility] [id number] Date(s): 09/03/17 - 09/03/[address] [address] Encounter Diagnosis Syncope and collapse (Final) [...]
--- OUTSIDE RECORDS SUMMARY | 2019-09-12 19:57 | XMS REPORT | Summary of Care ---
Author Author [facility] er Organization [facility] er Address Unknown Phone Unavailable Care Team Providers Care Manager Military Name Role Phone JON COULTER MD PCP PCP , NO PCP Unavailable Encounter [facility] [id number] Date(s): 08/13/17 - 08/13/[phone] [place] [address] Encounter Diagnosis Syncope and collapse (Final) - [...] reference intervals for this test in the [employer] [facility] Test Directory ([employer]). Performed by [employer], [address] [place] [id number] www.[employer], Tavares Scott MD - Lab. Director Immunizations [...]
--- OUTSIDE RECORDS SUMMARY | 2019-09-12 19:57 | XMS REPORT | Summary of Care ---
Author Author [facility] er Organization [facility] er Address Unknown Phone Unavailable Care Team Providers Care Manager Army Name Role Phone JON COULTER MD PCP PCP , NO PCP Unavailable Encounter [facility] [id number] Date(s): 09/03/17 - 09/03/[address] [address] Discharge Disposition: Home - 01 Attending [...]
--- OUTSIDE RECORDS SUMMARY | 2019-09-12 19:57 | XMS REPORT | Summary of Care ---
Author Author [facility] er Organization [facility] er Address Unknown Phone Unavailable Care Team Providers Care Margarine Churn Operator Name Role Phone JON COULTER MD PCP PCP , NO PCP Unavailable Encounter [facility] [id number] Date(s): 08/13/17 - 08/13/[phone] [place] [address] Encounter Diagnosis Syncope and collapse (Final) - [...] reference intervals for this test in the [employer] Test Directory ([employer]). Performed by [employer], [address] [place] [id number] www.[employer], Tavares Scott MD - Lab. Director Immunizations [...]
--- OUTSIDE RECORDS SUMMARY | 2019-09-12 19:57 | XMS REPORT | Summary of Care ---
Author Author [facility] er Organization [facility] er Address Unknown Phone Unavailable Care Team Providers Care Banking Services Advisor Name Role Phone JON COULTER MD PCP PCP , NO PCP Unavailable Encounter [facility] [id number] Date(s): 09/03/17 - 09/03/[address] [address] Encounter Diagnosis Syncope and collapse (Final) - [...]
--- OUTSIDE RECORDS SUMMARY | 2019-09-12 19:57 | XMS REPORT | Summary of Care ---
Author Author [facility] er Organization [facility] er Address Unknown Phone Unavailable Care Team Providers Care Java Development Team Lead Name Role Phone JON COULTER MD PCP PCP , NO PCP Unavailable Encounter [facility] [id number] Date(s): 08/13/17 - 08/13/[address] [address] Encounter Diagnosis Syncope and collapse [...] reference intervals for this test in the [employer] Test Directory ([employer]). Performed by [employer], [address] [place] [id number] www.[employer], Tavares Scott MD - Lab. Director Immunizations [...]
--- OUTSIDE RECORDS SUMMARY | 2019-09-12 19:57 | XMS REPORT | Summary of Care ---
Author Author [facility] er Organization [facility] er Address Unknown Phone Unavailable Care Team Providers Care Chemistry Tutor Name Role Phone JON COULTER MD PCP PCP , NO PCP Unavailable Encounter [facility] [id number] Date(s): 08/13/17 - 08/13/[phone] [place] [address] Encounter Diagnosis Syncope and collapse (Final) - [...] reference intervals for this test in the [employer] [facility] Test Directory ([employer]). Performed by [employer], [address] [place] [id number] www.[employer], Tavares Scott MD - Lab. Director Immunizations [...]
--- OUTSIDE RECORDS SUMMARY | 2019-09-12 19:57 | XMS REPORT | Summary of Care ---
Author Author [facility] er Organization [facility] er Address Unknown Phone Unavailable Care Team Providers Care News Cameraman Name Role Phone JON COULTER MD PCP PCP , NO PCP Unavailable Encounter [facility] [id number] Date(s): 09/03/17 - 09/03/[address] [address] Discharge Disposition: Home - 01 [...]
--- OUTSIDE RECORDS SUMMARY | 2019-09-12 19:57 | XMS REPORT | Summary of Care ---
Author Author [facility] er Organization [facility] er Address Unknown Phone Unavailable Care Team Providers Care Visiting Teacher Name Role Phone JON COULTER MD PCP PCP , NO PCP Unavailable Encounter [facility] [id number] Date(s): 08/13/17 - 08/13/[phone] [place] [address] Discharge Disposition: Home - 01 Attending Physician: [...] reference intervals for this test in the [employer] [facility] Test Directory ([employer]). Performed by [employer], [address] [place] [id number] www.[employer], Tavares Scott MD - Lab. Director Immunizations [...]
--- OUTSIDE RECORDS SUMMARY | 2019-09-12 19:57 | XMS REPORT | Summary of Care ---
Author Author [facility] er Organization [facility] er Address Unknown Phone Unavailable Care Team Providers Care Wholesale Parts Salesperson Name Role Phone JON COULTER MD PCP PCP , NO PCP Unavailable Encounter [facility] [id number] Date(s): 08/13/17 - 08/13/[phone] [place] [address] Encounter Diagnosis Syncope and collapse (Final) - [...] reference intervals for this test in the [employer] [facility] Test Directory ([employer]). Performed by [employer], [address] [place] [address] www.[email or web address], Tavares Scott MD - Lab. Director Immunizations [...]
--- OUTSIDE RECORDS SUMMARY | 2019-09-12 19:57 | XMS REPORT | Summary of Care ---
Author Author [facility] er Organization [facility] er Address Unknown Phone Unavailable Care Team Providers Care Patient Registration Clerk Name Role Phone JON COULTER MD PCP PCP , NO PCP Unavailable Encounter [facility] [id number] Date(s): 08/13/17 - 08/13/[id number] [place] [address] Encounter Diagnosis Syncope and collapse (Final) - [...] reference intervals for this test in the [facility] ([employer]). Performed by [employer] [facility] [address] [place] [id number] [email or web address], Tavares Scott MD - Lab. Director Immunizations [...]
--- OUTSIDE RECORDS SUMMARY | 2019-09-12 19:57 | XMS REPORT | Summary of Care ---
Author Author [facility] er Organization [facility] er Address Unknown Phone Unavailable Care Team Providers Care Practical Nurse Clinical Coordinator Name Role Phone JON COULTER MD PCP PCP , NO PCP Unavailable Encounter [facility] [id number] Date(s): 09/03/17 - 09/03/[address] [id number] Discharge Disposition: Home - 01 Attending [...]
--- OUTSIDE RECORDS SUMMARY | 2019-09-12 19:58 | XMS REPORT | Continuity of Care Document ---
Author Author [facility] Organization [facility] Address Unknown Phone Unavailable Care Team Providers Care Commanding Officer [employer] Name Role Phone [facility] Unavailable Unavailable Problems Problem Status Onset Date Classification Date Reported Comments Source MATERNAL CARE FOR LOW TRANSVERSE SCAR FR Active 10/17/2017 [facility] 39 WEEKS GESTATION OF Active 10/17/2017 [facility] SINGLE LIVE Active 10/17/2017 [facility] History of uterine scar from previous surgery 10/14/2017 Discharge Diagnosis 10/18/2017 [facility] Encounter for delivery without indication 10/14/2017 Discharge Diagnosis 10/18/2017 [facility] ENCOUNTER FOR SUSPECTED PROBLEM WITH AMN Active 10/09/2017 [facility] 38 WEEKS GESTATION OF Active 10/09/2017 [facility] SYNCOPE AND COLLAPSE Active 09/03/2017 [facility] Borderline blood pressure 08/13/2017 Diagnosis 08/13/2017 [facility] Thyroid function tests abnormal 08/13/2017 Diagnosis 08/13/2017 [facility] Systolic murmur 08/13/2017 Diagnosis 08/13/2017 [facility] Syncope Diagnosis 08/13/2017 [facility] Problem 08/13/2017 [facility] ENCOUNTER FOR OTHER SUSPECTED MATERNAL A Active 08/06/2017 [facility] 29 WEEKS GESTATION OF Active 08/06/2017 [facility] OTHER SPECIFIED DISEASES AND CONDITIONS Active 07/30/2017 [facility] UNSPECIFIED ABDOMINAL PAIN Act kristi 07/30/2017 [facility] 28 WEEKS GESTATION OF Active 07/30/2017 [facility] , function (observable entity) Active 07/30/2017 Problem 10/10/2017 [facility] EARLY ONSET OF DELIVERY, DELIVERED, WITH Active 01/28/2013 [facility] TWIN , DELIVERED, WITH OR WITHO Active 01/28/2013 [facility] MOTHER WITH TWINS, BOTH LIVEBORN Active 01/28/2013 [facility] ENCOUNTER FOR STERILIZATION Ac tive 01/28/2013 [facility] TWIN GESTATION, UNSPECIFIED NUMBER OF PL Active 01/28/2013 [facility] THREATENED PREMATURE LABOR, ANTEPARTUM C Active 12/05/2012 [facility] TWIN , ANTEPARTUM CONDITION OR Active 12/05/2012 [facility] Syncope and collapse Final 09/13/2017 [facility] Active Problem 02/06/2011 1Added by Discern Expert [facility] Encounter for other suspected maternal a nd conditions ruled out Final 08/16/2017 [facility] 29 weeks gestation of Final 08/16 [facility] er No current problems or disability (diana xt-dependent category) Active Prob nettie 10/18/2017 Generated from [facility] Discharge Information Form. [facility] Other specified diseases and conditions complicating , childbirth and the puerperium Final 08/09/2017 [facility] Unspecified abdominal pain Final 08/09/2017 [facility] er 28 weeks gestation of Final 08/09 [facility] er Medications Medication Details Route Status Patient Instructions Ordering Provider Order Date Source Docusate Sodium 100 MG Oral Capsule 1 CAP, PO, BID (2 times a day), 0 Refill(s) Active 10/17/2017 [facility] for Breast Feeding Mothers TOP, Q1H (Every hour), PRN Other (see comment), 0 Refill(s) Active 10/17/2017 [facility] Acetaminophen 325 MG / Oxycodone Hydroch loride 5 MG Oral Tablet 1 TAB, PO, Q4H (Every 4 hours), PRN as n eeded for pain, # 12 TAB, 0 Refill(s), Indication: Moderate Pain Active 10/17/2017 [facility] Ibuprofen 400 MG Oral Tablet 2 TAB, PO, Q8H (Every 8 hours), PRN Moderate Pain, # 10 TAB, 0 Refill(s), (Femi Advil), Indication: Cramping Active 10/17/2017 [facility] ferrous sulfate = 1 TAB, PO, D aily, 0 Refill(s), Indication: Anemia Active 10/08/2017 [facility] Tums 500 mg, Chewed, 4 times a day, PRN as needed for dyspepsia, 0 Refill(s), Indication: Heartburn Active 10/08/2017 [facility] Cyclobenzaprine hydrochloride 5 MG Oral Tablet 1-2 tab, PO, Q8H (Every 8 hours), PRN Moderate Pain, # 20 TAB, 0 Refill(s), Indication: Moderate Pain, Pharmacy: [facility] [id number] Active 07/30/2017 [facility] Lortab 5/500 1 TAB, PO, Q3H (E very 3 hours), PRN as needed for pain, # 30 TAB, 04/28/10 15:48:02 PO Ordered CEDERLIND 04/28/2010 [facility] naproxen sodium 550 mg oral tablet, extended release = 1 TAB, PO, Q8H (Every 8 hours), PRN as needed for pain, # 20 TAB, 04/28/10 15:47:47 PO Ordered CEDERLIND 0 04/28/2010 [facility] Adacel 0.5 mL, SUSP, IM, ONE-T EH, 04/26/10 0:00:00 IM Completed CEDERLIND 04/26/2010 [facility] multivitamin, 1 TAB, PO, QDAY, TAB, 03/04/10 13:07:42 PO Ordered 03/04/2010 [facility] iron
45mg qd iron 45mg qd Active [facility] Vitamin
1 po qd Vitamin 1 po qd Active [facility] Allergies, Adverse Reactions, Alerts Substance Category Reaction Severity Reaction type Status Date Reported Comments Source codeine Assertion chest pain Propensity to adverse reacti ons to drug Active [facility] er Immunizations Immunization Date Given Site Status Last Updated Comments Source diphtheria/pertussis, acel/tetanus adult 04/29/2010 Right Deltoid completed [facility] diphtheria/pertussis, acel/tetanus adult 04/29/2010 completed [facility] Results Order Name Results Value Reference Range Date Interpretation Comments Source CBC Platelet 99 x10'3/microL 140 - 400 10/15/2017 L [facility] CBC MPV 12.7 fL 6.5 - 10.4 10/15/2017 H [facility] [place] IPF Immature Platelet Fraction 13.1 % 1.0 - 4.8 10/15/2017 H [facility] CBC WBC 8.2 x10'3/microL 4.0 - 11.0 10/15/2017 N [facility] CBC RBC 3.55 x10'6/microL 3.90 - 5.60 10/15/2017 L [facility] CBC Hgb 10.3 g/dL 12.0 - 16.0 10/15/2017 L [facility] CBC Hct 32 % 35 - 47 10/15/2017 L [facility] CBC MCV 91 fL 81 - 99 10/15/2017 N [facility] CBC MCH 29 pg 27 - 34 10/15/2017 N [facility] CBC MCHC 32 g/dL 30 - 36 10/15/2017 N [facility] [place] CBC RDW 17.8 % - <=16.4 10/15/2017 H [facility] [place] IS Cord ABG SMM Sample Type CORD 10/14/2017 NA [facility] [place] IS Cord ABG SMM Site of Collection Gabe Cord 10/14/2017 [facility] [place] [facility] Cord ABG SMM pH Cord Blood 7.350 10/14/2017 NA [facility] [place] IS Cord ABG SMM pCO2 Cord Blood 42.7 mmHg 10/14/2017 NA [facility] [place] IS Cord ABG SMM pO2 Cord Blood 27 mmHg 10/14/2017 NA [facility] [place] IS Cord ABG SMM TCO2 Cord Blood 25.0 mmol/L 10/14/2017 NA [facility] [place] IS Cord ABG SMM HCO3 Cord Blood 23.6 mmol/L 10/14/2017 NA [facility] [place] IS Cord ABG SMM BE Cord Blood -2 mmol/L 10/14/2017 NA [facility] [place] IS Cord ABG SMM O2 Sat Cord Blood 46 % 10/14/2017 NA [facility] [place] IS Cord ABG SMM Chava Test N/A 10/14/2017 NA [facility] [place] IS Cord ABG SMM Drawn by RN 10/14/2017 NA Meter ID: [id number]
Service Desk Associate: [id number] CELESTE ALARCON
[facility] [place] IS Cord ABG SMM Device Room Air 10/14/2017 NA [facility] [place] IS Cord ABG SMM Sample Type CORD 10/14/2017 NA [facility] [place] IS Cord ABG SMM Site of Collection Art Cord 10/14/2017 NA [facility] [place] IS Cord ABG SMM pH Cord Blood 7.287 10/14/2017 NA [facility] [place] IS Cord ABG SMM pCO2 Cord Blood 52.8 mmHg 10/14/2017 NA [facility] [place] IS Cord ABG SMM pO2 Cord Blood 15 mmHg 10/14/2017 NA [facility] [place] IS Cord ABG SMM TCO2 Cord Blood 27.0 mmol/L 10/14/2017 NA [facility] [place] IS Cord ABG SMM HCO3 Cord Blood 25.2 mmol/L 10/14/2017 NA [facility] [place] IS Cord ABG SMM BE Cord Blood -1 mmol/L 10/14/2017 NA [facility] [place] IS Cord ABG SMM O2 Sat Cord Blood 15 % 10/14/2017 NA [facility] [place] IS Cord ABG SMM Chava Test N/A 10/14/2017 NA [facility] [place] IS Cord ABG SMM Drawn by RN 10/14/2017 NA Meter ID: [id number]
Service Desk Associate: [id number] CELESTE ALARCON
[facility] [place] IS Cord ABG SMM Device Room Air 10/14/2017 NA [facility] [place] ABSC 2 Cell Gel ABSC Gel Interp NEG 10/14/2017 N [facility] [place] ABORh ABORh O POS,O POS 10/14/2017 NA [facility] [place] BB Lab Eval RhIG? No 10/14/2017 N [facility] [place] BB Lab Eval FetSC? No 10/14/2017 N [facility] [place] CBC WBC 8.8 x10'3/microL 4.0 - 11.0 10/14/2017 N [place] CBC RBC 4.00 x10'6/microL 3.90 - 5.60 10/14/2017 N [facility] [place] CBC Hgb 11.8 g/dL 12.0 - 16.0 10/14/2017 L [facility] [place] CBC Hct 36 % 35 - 47 10/14/2017 N [place] CBC MCV 89 fL 81 - 99 10/14/2017 N [place] CBC MCH 30 pg 27 - 34 10/14/2017 N [place] CBC MCHC 33 g/dL 30 - 36 10/14/2017 N [place] CBC RDW 17.5 % - <=16.4 10/14/2017 H [place] CBC Platelet 144 x10'3/microL 140 - 400 10/14/2017 N [place] CBC MPV 12.5 fL 6.5 - 10.4 10/14/2017 H [place] ROM/Amnisure ROM Protein Neg ative Negative 10/09/2017 N [facility] [place] T3 Free T3 Free 2.4 pg/mL 2.4- 4.2 08/14/2017 NA REFERENCE INTERVAL: Triiodothyronine, Fr ee (Free T3)
Access complete set of age- and/or gender-specific reference intervals for
this test in the [facility] Test Directory ([email or web address]).
Performed by [facility],
[address] [facility] [place] [address]
[email or web address], Tavares Scott MD - Lab. Director
[facility] T4 Free T4 Free 1.1 ng/dL 0.9 - 1.7 08/13/2017 N [facility] TSH TSH 1.[address]Units/mL 0.27 - 4.20 08/13/2017 N [facility] Renal Funct Index GFR (CKD-EPI) >110.0 mL/min/1.73 m2 08/13/2017 NA GFR calculated based on CKD -EPI Creatinine Equation (2009).
Age(years) Average GFR
20-29 116 mL/min/1.73 m^2
30-39 107 mL/min/1.73 m^2
40-49 99 mL/min/1.73 m^2
50-59 93 mL/min/1.73 m^2
60-69 85 mL/min/1.73 m^2
70+ 75 mL/min/1.73 m^2

Acceptable GFR =>60 mL/min/1.73 m^2
Chronic Kidney Disease <60 mL/min/1.73 m^2
Kidney Failure <15 mL/min/1.73 m^2
[facility] BMP Sodium 137 mmol/L 136 - 145 08/13/2017 N [facility] BMP Potassium 4.0 mmol/L 3.5 - 5.1 08/13/2017 N [facility] BMP Chloride 102 mmol/L 98 - 107 08/13/2017 N [facility] BMP CO2 23 mmol/L 22 - 29 08/13/2017 N [facility] BMP AGAP 12 mmol/L 3 - 12 08/13/2017 N [facility] BMP Glucose 74 mg/dL 70 - 100 08/13/2017 N [facility] BMP BUN 7 mg/dL 8 - 20 08/13/2017 L [facility] BMP Creatinine 0.3 mg/dL 0.7 - 1.2 08/13/2017 L The presence of ketone bodies can cause artificially high results in serum, plasma and urine.
[facility] BMP Calcium 8.2 mg/dL 8.6 - 10.2 08/13/2017 L [facility] [place] Magnesium Magnesium 2.1 mg/dL 1.6 - 2.6 08/13/2017 N Critical High for OB Patients >=7.0 mg/d l.
[facility] [place] [facility] [place] Auto Diff Neutrophils 77 % 44 - 76 08/13/2017 H [facility] [place] Auto Diff Lymphocytes % 17 % 13 - 43 08/13/2017 N [facility] [place] Auto Diff Monocytes % 4 % 0 - 13 08/13/2017 N [facility] [place] Auto Diff Eosinophils % 1 % 0 - 7 08/13/2017 N [facility] [place] Auto Diff Basophils % 0 % 0 - 3 08/13/2017 N [facility] [place] Auto Diff Immature Granulocytes % 1 % 0 - 0 08/13/2017 H [facility] [place] Auto Diff Neutro Absolute 8.2 x1 0'3/microL 1.4 - 7.2 08/13/2017 H [facility] [place] Auto Diff Lymph Absolute 1.8 x1 0'3/microL 1.2 - 3.4 08/13/2017 N [facility] [place] Auto Diff Rice Absolute 0.4 x1 0'3/microL 0.1 - 0.6 08/13/2017 N [facility] [place] Auto Diff Eos Absolute 0.2 x1 0'3/microL 0.0 - 0.5 08/13/2017 N [facility] [place] Auto Diff Basophil Absolute 0.0 x1 0'3/microL 0.0 - 0.2 08/13/2017 N Replaced by [facility] [place] Auto Diff Immature Grans Abs 0.1 x1 0'3/microL 0.0 - 0.0 08/13/2017 H Replaced by [facility] [place] CBC/Diff WBC 10.6 x10'3/micr oL 4.0 - 11.0 08/13/2017 N [facility] [place] CBC/Diff RBC 3.48 x10'6/micr oL 3.90 - 5.60 08/13/2017 L [facility] [place] CBC/Diff Hgb 10.1 g/dL 12.0 - 16.0 08/13/2017 L [facility] [place] CBC/Diff Hct 31 % 35 - 47 08/13/2017 L [email or web address] CBC/Diff MCV 89 fL 81 - 99 08/13/2017 N [facility] [place] CBC/Diff MCH 29 pg 27 - 34 08/13/[address] [facility] [place] CBC/Diff MCHC 33 g/dL 30 - 36 08/13/[address] [facility] [place] CBC/Diff RDW 13.4 % - <=16.4 08/13/2017 N [facility] [place] CBC/Diff Platelet 182 x10 '3/microL 140 - 400 08/13/[address] [facility] [place] CBC/Diff MPV 11.4 fL 6.5 - 10.4 08/13/2017 H [facility] [place] Chlam GC PCR Chlam Amp Prb NOT DETECTED 08/06/2017 NA Methodology: Nucleic Acid Amplification< br/> [facility] [place] Chlam GC PCR Neisseria gonorrhoeae A mp P NOT DETECTED 08/06/2017 NA Methodology: Nucleic Acid Amplification.

The Xpert CT/NG PCR assay should not be used for the evaluation of suspected sexual abuse or for other medico-legal indications. Additional testing is recommended in any circumstance when false positive or false negative results could lead to adverse medical, social, or psychological consequences.
[email or web address] Wet Prep WP WBC Many None Seen 08/06/2017 @ [facility] [place] Wet Prep WP YEAST None Seen None Seen 08/06/2017 N [facility] WP TRICH None Seen None Seen 08/06/2017 N [facility] WP CLUE Few None Seen 08/06/2017 @ [facility] UA CI Culture? No 08/06/2017 N [facility] [place] Ur Micro - NC UA WBC 0-5 /hpf 0-5 08/06/2017 N [facility] Ur Micro - NC UA Epithelial Fe w /hpf Negative to Few 08/06/2017 N [place] [place] Ur Micro - NC UA Mucous Pr esent None Seen 08/06/2017 @ [facility] UA CI UA Spec Type Clean Catc h 08/06/2017 N [facility] [place] UA CI UA Color YELLOW 08/06/2017 N [facility] [place] UA CI UA Glucose NEGATIVE m g/dL Negative 08/06/2017 N [place] [place] UA CI UA Bili NEGATIVE Negative 08/06/2017 N [place] [place] UA CI UA Ketones NEGATIVE m g/dL Negative 08/06/2017 N [facility] [place] UA CI UA Spec Grav 1.015 1.001 - 1.030 08/06/2017 N [facility] UA CI UA pH 6.0 5.0 - 8.0 08/06/2017 N [facility] CI UA Protein NEGATIVE m g/dL Negative 08/06/2017 N [employer] UA CI UA Urobilinogen 0.2 EU per dL 0.2 - 1.0 08/06/2017 N [employer] UA CI UA Nitrite NEGATIVE Negative 08/06/2017 N [employer] UA CI UA Blood NEGATIVE Negative 08/06/2017 N [employer] UA CI UA Leuk Est MODERATE Negative 08/06/2017 @ [employer] UA CI Microscopic? Yes 08/06/2017 @ When result = No, Microscopic is not indicated. Specimen is held for 3 days. Call [phone] if further testing is needed.
[employer] UA CI Culture? No 07/30/2017 N [employer] Ur Micro - [place] UA WBC 0-5 /hpf 0-5 07/30/2017 N [employer] Ur Micro - [place] UA Epithelial Fe w /hpf Negative to Few 07/30/2017 N [facility] [place] UA CI UA Spec Type Clean Catc h 07/30/2017 N [facility] UA CI UA Color YELLOW 07/30/2017 N [place] UA CI UA Glucose NEGATIVE m g/dL Negative 07/30/2017 N [facility] [place] UA CI UA Bili NEGATIVE Negative 07/30/2017 N [facility] [place] UA CI UA Ketones NEGATIVE m g/dL Negative 07/30/2017 N [place] UA CI UA Spec Grav 1.015 1.001 - 1.030 07/30/2017 N [facility] [place] UA CI UA pH 6.0 5.0 - 8.0 07/30/2017 N [facility] [place] UA CI UA Protein NEGATIVE m g/dL Negative 07/30/2017 N [facility] [place] UA CI UA Urobilinogen 0.2 EU per dL 0.2 - 1.0 07/30/2017 N [facility] [place] UA CI UA Nitrite NEGATIVE Negative 07/30/2017 N [facility] [place] UA CI UA Blood NEGATIVE Negative 07/30/2017 N [facility] [place] UA CI UA Leuk Est MODERATE Negative 07/30/2017 @ [facility] [place] UA CI Microscopic? Yes 07/30/2017 @ When result = No, Microscopic is not indicated. Specimen is held for 3 days. Call [phone] if further testing is needed.
[facility] [place] Auto Diff Neutrophils 79 % 44 - 76 07/30/2017 H [facility] [place] Auto Diff Lymphocytes % 13 % 13 - 43 07/30/2017 N [facility] [place] Auto Diff Monocytes % 7 % 0 - 13 07/30/2017 N [facility] [place] Auto Diff Eosinophils % 1 % 0 - 7 07/30/2017 N [facility] [place] Auto Diff Basophils % 0 % 0 - 3 07/30/2017 N [facility] [place] Auto Diff Immature Granulocytes % 0 % 0 - 0 07/30/2017 N [facility] [place] Auto Diff Neutro Absolute 6.7 x1 0'3/microL 1.4 - 7.2 07/30/2017 N [facility] [place] Auto Diff Lymph Absolute 1.1 x1 0'3/microL 1.2 - 3.4 07/30/2017 L [facility] [place] Auto Diff Rice Absolute 0.6 x1 0'3/microL 0.1 - 0.6 07/30/2017 N [facility] [place] Auto Diff Eos Absolute 0.1 x1 0'3/microL 0.0 - 0.5 07/30/2017 N [facility] [place] Auto Diff Basophil Absolute 0.0 x1 0'3/microL 0.0 - 0.2 07/30/2017 N Replaced by [facility] [place] Auto Diff Immature Grans Abs 0.0 x1 0'3/microL 0.0 - 0.0 07/30/2017 N [facility] CBC/Diff WBC 8.5 x10'3/micro L 4.0 - 11.0 07/30/2017 N [facility] [place] CBC/Diff RBC 3.32 x10'6/micr oL 3.90 - 5.60 07/30/[address] [facility] [place] CBC/Diff Hgb 9.7 g/dL 12.0 - 16.0 07/30/[address] [facility] [place] CBC/Diff Hct 30 % 35 - 47 07/30/2017 L [facility] CBC/Diff MCV 90 fL 81 - 99 07/30/2017 N [facility] [place] CBC/Diff MCH 29 pg 27 - 34 07/30/2017 N [facility] [place] CBC/Diff MCHC 33 g/dL 30 - 36 07/30/2017 N [facility] CBC/Diff RDW 13.0 % - <=16.4 07/30/2017 N [facility] CBC/Diff Platelet 196 x10 '3/microL 140 - 400 07/30/2017 N [facility] CBC/Diff MPV 10.6 fL 6.5 - 10.4 07/30/2017 H [facility] C Urine C Urine
[facility]
[address]
[facility] [address]

M i c r o b i o l o g y

PROCEDURE: Culture Urine
SOURCE: Urine COLLECTED: 07/30/2017 13:43 CDT
BODY SITE: *Same as Specimen Type* RECEIVED: 07/30/2017 15:49 CDT
FREE TEXT SOURCE: STARTED: 07/30/2017 15:49 CDT

FINAL REPORT <br/& gt;
Final Report
Verified:08/02/2017 07:29 CDT
<10,000 cfu/ml Gram Positive samuel No further testing planned on this
specimen.
No Group B Streptococcus isolated.

ORDER COMMENTS
specimen in lab

08/01/2017 14:58 CDT Culture Urine:
Test Performed at [facility], [address] [place] [address],
[facility] [address].

____
07/30/2017 [facility] CBC WBC 13.1 x10'3/microL 4.0 - 11.0 01/25/2013 H [facility] CBC RBC 2.93 x10'6/microL 3.90 - 5.60 01/25/2013 L [facility] CBC Hgb 8.9 g/dL 12.0 - 16.0 01/25/2013 L [facility] [place] CBC Hct 26 % 35 - 47 01/25/2013 L [facility] CBC MCV 87 fL 81 - 99 01/25/2013 N [facility] CBC MCH 30 pg 27 - 34 01/25/2013 N [facility] [place] CBC MCHC 35 g/dL 32 - 36 01/25/2013 N [facility] [place] CBC RDW 15.7 % - <=14.5 01/25/[address] [facility] [place] CBC Platelet 121 x10'3/microL 140 - 400 01/25/2013 L [facility] [place] CBC MPV 9.8 fL 6.5 - 10.4 01/25/2013 N [facility] Magnesium Magnesium 6.8 mg/dL 1.6 - 2.6 01/23/2013 [facility] Critical High for OB Patients >=7.0 mg/d l.
[facility] [place] Auto Diff Neutrophils 91 % 44 - 76 01/23/2013 H [facility] [place] Auto Diff Lymphocytes % 4 % 13 - 43 01/23/2013 L [facility] [place] Auto Diff Monocytes % 5 % 0 - 13 01/23/2013 N [facility] [place] Auto Diff Eosinophils % 0 % 0 - 7 01/23/2013 N [facility] [place] Auto Diff Basophils % 0 % 0 - 3 01/23/2013 N [facility] [place] Auto Diff Neutro Absolute 13.2 x 10'3/microL 1.4 - 7.2 01/23/2013 H Replaced by [facility] [place] Auto Diff Lymph Absolute 0.6 x1 0'3/microL 1.2 - 3.4 01/23/2013 L [facility] [place] Auto Diff Rice Absolute 0.7 x1 0'3/microL 0.1 - 0.6 01/23/2013 H [facility] [place] Auto Diff Eos Absolute 0.0 x1 0'3/microL 0.0 - 0.5 01/23/2013 N [facility] [place] Auto Diff Basophil Absolute 0.0 x1 0'3/microL 0.0 - 0.2 01/23/2013 N [facility] [facility] [place] CBC Definitive Comments See Notes 01/23/2013 NA Neutrophilia
[facility] [place] CBC Specimen Comments See Notes 01/23/2013 NA SNV: Review Slide. Manual Diff if Needed
[facility] [place] Magnesium Magnesium 4.6 mg/dL 1.6 - 2.6 01/23/2013 H Critical High for OB Patients >=7.0 mg/d l.
[facility] [place] ABSC 2 Cell Gel ABSC Gel Interp Neg 01/22/2013 N [place] BB Lab Eval RhIG? No 01/22/2013 N [facility] [place] BB Lab Eval FetSC? No 01/22/2013 N [place] Ur Micro - NC UA RBC 0-5 /hpf 0-5 01/22/2013 N [facility] [place] Ur Micro - NC UA WBC 6-10 /hpf 0-5 01/22/2013 @ [facility] [place] Ur Micro - NC UA Epithelial Fe w /hpf Negative to Few 01/22/2013 N [facility] [place] Ur Micro - NC UA Bacteria Mo derate /hpf Negative 01/22/2013 @ [facility] [place] Ur Micro - NC UA Mucous Pr esent None Seen 01/22/2013 @ [facility] [place] CBC WBC 14.6 x10'3/microL 4.0 - 11.0 01/22/2013 H [place] CBC RBC 3.85 x10'6/microL 3.90 - 5.60 01/22/2013 L [place] CBC Hgb 11.7 g/dL 12.0 - 16.0 01/22/2013 L [place] CBC Hct 34 % 35 - 47 01/22/2013 L [place] CBC MCV 88 fL 81 - 99 01/22/2013 N [place] CBC MCH 30 pg 27 - 34 01/22/2013 N [place] CBC MCHC 34 g/dL 32 - 36 01/22/2013 N [place] CBC RDW 15.4 % - <=14.5 01/22/2013 H [place] CBC Platelet 148 x10'3/microL 140 - 400 01/22/2013 N [place] [place] CBC MPV 10.5 fL 6.5 - 10.4 01/22/2013 H [place] UA UA Spec Type Clean Catch 01/22/2013 N [place] UA UA Color YELLOW 01/22/2013 N [facility] [place] UA UA Spec Grav 1.010 1.001 - 1.030 01/22/2013 N [place] UA UA pH 6.5 5.0 - 8.0 01/22/2013 N [facility] [place] UA UA Protein NEGATIVE mg/dL Negative 01/22/2013 N [place] UA UA Bili NEGATIVE Negative 01/22/2013 N [place] UA UA Glucose NEGATIVE mg/dL Negative 01/22/2013 N [facility] UA UA Ketones >=80 mg/dL Negative 01/22/2013 @ [facility] UA UA Blood TRACE Negative 01/22/2013 N [facility] UA UA Nitrite NEGATIVE Negative 01/22/2013 N [facility] UA UA Urobilinogen 0.2 EU per dL 0.2 - 1.0 01/22/2013 N [facility] UA UA Leuk Est LARGE Negative 01/22/2013 @ [facility] UA Microscopic? Yes 01/22/2013 @ When result = No, Microscopic is not indicated. Specimen is held for 3 days. Call [phone] if further testing is needed.
[facility] Amnisure Assay AmniSure (PAMG-1) N egative Negative 01/22/2013 N [facility] Culture Urine Culture Urine

<b>Final:</b>
No growth (<1,000 cfu/ml)
01/22/2013 [facility] C Urine C Urine
[facility] [address]
[facility] [address]

M i c r o b i o l o g y

PROCEDURE: Culture Urine
SOURCE: U CleanCatch COLLECTED: 01/22/2013 17:30
BODY SITE: *Same as Specimen Type* RECEIVED: 01/23/2013 03:04
FREE TEXT SOURCE: STARTED: 01/23/2013 03:04

FINAL REPORT

Final Report
Verified:01/24/2013 06:36
No growth (<1,000 cfu/ml)

<b r/> 01/22/2013 [facility] POC [facility] UA Spec Grav POC 1.015 1.001 - 1.030 01/22/2013 N [facility] [employer] UA POC SMM UA pH POC 7.0 5.0 - 8.0 01/22/2013 N [facility] [place] UA POC SMM UA Protein POC NEGAT KRISTI mg/dL Negative 01/22/2013 N [facility] [place] UA POC SMM UA Glucose POC NEGAT KRISTI mg/dL Negative 01/22/2013 N [facility] [place] UA POC SMM UA Ketone POC >=160 mg/dL Negative 01/22/2013 @ [facility] [place] UA POC SMM UA Bili POC NEGAT KRISTI Negative 01/22/2013 N [facility] [place] UA POC SMM UA Blood POC TRACE -INTACT Negative 01/22/2013 @ [facility] [place] UA POC SMM UA Nitrite POC NEGAT KRISTI Negative 01/22/2013 N [facility] [place] UA POC SMM UA Leuk Est POC LARGE Negative 01/22/2013 @ [facility] [place] UA POC SMM UA UBG POC 0.2 E U per dL 0.2 - 1.0 01/22/2013 N [facility] [place] FFN Fet Fibronectin Negative Negative 12/05/2012 N [facility] [employer] Ur Micro - NC UA WBC 11 -25 /hpf 0-5 12/05/2012 @ UA WBC: Corrected from 6-10 on 3 13:43:59 by MARILYN GRIFFIN
[facility] [place] Ur Micro - [place] UA RBC Ne gative /hpf 0-5 12/05/2012 N [facility] [place] Ur Micro - NC UA WBC 6-10 /hpf 0-5 12/05/2012 @ [facility] [employer] Ur Micro - NC UA Epithelial Fe w /hpf Negative to Few 12/05/2012 N [facility] [place] Ur Micro - NC UA Bacteria Mo derate /hpf Negative 12/05/2012 @ [facility] [place] Ur Micro - [place] UA Mucous Pr esent None Seen 12/05/2012 @ [facility] [place] UA CI UA Spec Type Clean Catc h 12/05/2012 N [facility] [place] UA CI UA Color YELLOW 12/05/2012 [facility] [place] UA CI UA Glucose NEGATIVE m g/dL Negative 12/05/2012 [facility] [place] UA CI UA Bili NEGATIVE Negative 12/05/2012 N [facility] [place] UA CI UA Ketones NEGATIVE m g/dL Negative 12/05/2012 N [facility] [place] UA CI UA Spec Grav 1.015 1.001 - 1.030 12/05/2012 N [facility] [place] UA CI UA pH 7.0 5.0 - 8.0 12/05/2012 N [facility] [place] UA CI UA Protein NEGATIVE m g/dL Negative 12/05/2012 N [facility] [place] UA CI UA Urobilinogen 0.2 EU per dL 0.2 - 1.0 12/05/2012 N [facility] [place] UA CI UA Nitrite NEGATIVE Negative 12/05/2012 N [facility] [place] UA CI UA Blood NEGATIVE Negative 12/05/2012 N [facility] [place] UA CI UA Leuk Est LARGE Negative 12/05/2012 @ [facility] [place] UA CI Culture? Yes 12/05/2012 @ [facility] [place] UA CI Microscopic? Yes 12/05/2012 @ When result = No, Microscopic is not indicated. Specimen is held for 3 days. Call [phone] if further testing is needed.
[facility] [place] Culture Urine Culture Urine

<b>Final:</b>
>100,000 cfu/ml Gardnerella vaginalis
<10,000 cfu/ml Gram Positive samuel
No further testing planned for these organisms.
12/05/2012 UA Spec Type: Clean Catch [facility] [place] C Urine C Urine
[facility] [address]
[facility] [address]

M i c r o b i o l o g y

PROCEDURE: Culture Urine
SOURCE: Urine COLLECTED: 12/05/2012 13:10
BODY SITE: RECEIVED: 12/05/2012 14:09
FREE TEXT SOURCE: STARTED: 12/05/2012 14:09

FINAL REPORT

Final Report
Verified:12/07/2012 10:13
>100,000 cfu/ml Gardnerella vaginalis
<10,000 cfu/ml Gram Positive samuel
No further testing planned for these organisms.

ORDER COMMENTS
UA Spec Type: Clean Catch

12/05/2012 [facility] Pathology Reports Report Value Date Source Surgical Pathology Final Report Sales Assistant [employer] Sales Assistant [employer] Media: ELIEZER Pathologist groupMARY SURGICAL PATHOLOGY REPORT [address] [address] Surgical Pathology Report [id number] FINAL DIAGNOSIS: Third trimester twin placenta, diamnionic, dichorionic: Placenta A: 1. Three-vessel umbilical cord. 2. Moderate chorioamnionitis. Placenta B: 1. Three-vessel umbilical cord. 2. Moderate chorioamnionitis. PAB Specimen(s) Received: 32.2 week twin placenta Clinical Information: 32.2 weeks twin gestation Gross Description: The specimen is identified by the patient's name and is received as "twin placentas". Received in formalin is a 564 gram, 23.8 x 17.5 x 2.0 cm, fused twin placenta, with the umbilical cords and extraplacental membranes previously removed. A septal membrane is present and easily separates into two separate membranes. Umbilical cord B is designated by a clamp. The overall surface is blue-purple and glistening. The extraplacental membranes are pink-mosher and somewhat translucent. Umbilical cord A inserts eccentrically to the chorionic plate, 3.3 cm from the closest placental margin and 4.2 from the septal membrane. Umbilical cord A is 21.7 cm in length by 1.1 cm in diameter, with a moderate clockwise twist and three vessels. Umbilical cord B inserts eccentrically to the chorionic plate, 6.2 cm from the closest placental margin and 2.8 cm from the septal membrane. Umbilical cord B is 21.7 cm in length by 1.2 cm in diameter with a moderate clockwise twist and three vessels. The maternal surface consists of mostly intact cotyledons; however, is remarkable for two separate, roughened, hemorrhagic areas. One measures 4.4 x 2.5 cm and the second measures 3.5 x 3.0 cm, side A and side B, respectively. Sectioning reveals unremarkable, red-brown, spongy parenchyma with no lesions grossly identified. Buzzsaw Operator Helper sections are submitted in seven cassettes as follows: A1 - septal membrane A2-A4 - side A A2 - umbilical cord and membrane roll A3 - placenta, peripheral A4 - placenta, central A5-A7 - side B A5 - umbilical cord and membrane roll [facility] [id number] A6 - placenta, peripheral A7 - placenta, central PAB/01/25/13 DLK 01/24/2013 [facility] Diagnostic Reports Report Value Date Source US Uterus Limited [address] [address] Radiology Reports CPT Codes: 70031 CDM Codes: 4983284 (US Uterus Limited) Reason for exam: variables Report Uterus ultrasound limited: CLINICAL HISTORY: Amniotic fluid index TECHNIQUE: Real-time grayscale sonographic images were obtained to terminate amniotic fluid index. IMPRESSION: The amniotic fluid index is 19. There is a in cephalic presentation. The heart rate is 150 bpm. Dictating Guzman Aguilar Dictated 10/09/2017 16:44 Signing Guzman Aguilar [facility]-RAD[facility] Final Transcribed by: TANNER 10/09/17 16:45 Signed by: GUZMAN PAREDES MD 10/09/17 16:45 MICHAEL ELIZONDO [id number] 10/09/2017 [facility] Consultation Notes Results Value Date Source Operative Report DATE: 2017 SURGEON: EVELYNE RAMIRES MD POSTOPERATIVE DIAGNOSIS: History of prior section, desires repeat. POSTOPERATIVE DIAGNOSIS: History of prior section, desires repeat. PROCEDURE PERFORMED: Primary repeat low transverse section. GROUNDMAN/LINEMAN: Dr. Jennifer Wang. ESTIMATED BLOOD LOSS: 7 mL. ANESTHESIA: Epidural. FINDINGS: Viable infant girl with Apgars of 8 and 9. Weighing 6 pounds, 15 ounces. Normal pelvic anatomy. DESCRIPTION OF PROCEDURE: The patient was consented and taken to the operating room, placed on table in the supine position with a leftward tilt after epidural was placed. She was then prepped and draped in sterile fashion. Thompson catheter was placed. Once adequate anesthesia was obtained, a Pfannenstiel skin incision was made and carried down to the underlying fascia. Fascia was nicked in midline, extended laterally with the Mohan scissors. The fascia was then grasped with Shun clamps, elevated, and rectus muscle was superiorly and inferiorly. The peritoneum was then entered and extended. The vesicouterine peritoneum was taken down sharply. The uterine incision was made and the membranes were ruptured. The was delivered without any difficulty. The placenta was removed. Uterus was exteriorized, cleared of all clots and debris. Uterine incision was closed with 0 Vicryl in a running, locked fashion, followed by an imbricating layer. Uterus returned to the abdomen, abdomen irrigated, and hemo stasis was noted. Peritoneum was then closed with 2-0 Vicryl. Fascia closed with 0 Vicryl. The Pat fascia was reapproximated with interrupted 3-0 Vicryl. Skin was then closed with Insorb mark and dressed with Steri-Strips. The patient tolerated the procedure well and was taken to the recovery in stable condition with no complications. [facility]/[id number]/MODL /[id number] 10/14/2017 [facility] Procedure Report Procedure Report Document Name Signed Date Procedure Report 10/14/2017 9:09:45 AM CDT Delivery Note [facility] Patient: MICHAEL ELIZONDO Age: 27 years Sex: Female : 1990 Associated Diagnoses: None Author: EVELYNE RAMIRES MD Operative Information Indications: Previous . Anesthesia: Epidural. Procedure: Low transverse section. Findings: Female , Weight 6.15. One minute : 8. Five minute : 9. Complications: None, EBL 700ml. [Electronically Signed By:] EVELYNE MEZA MD On, 10/14/2017 09:09 AM 10/14/2017 [facility] Operative Report Operative Report Delivery Note [facility] Patient: MICHAEL CESAR Age: 23 years Sex: Female : 1990 Associated Diagnoses: None Author: JENNIFER MARKHAM MD Operative Information Indications: twins gestation. Anesthesia: Epidural. Procedure: Low transverse section. Findings: One minute : 8. Five minute : 9. Ten minute : 9. Complications: None, EBL <500 ml., Tubal ligation. [Electronically Signed By:] JENNIFER MARKHAM MD On, 01/25/2013 09:24 AM 01/25/2013 [facility] Discharge Summaries Results Value Date Source Discharge Summary Discharge Summary Document Name Signed Date Discharge Summary 10/17/2017 11:05:38 AM CDT Discharge Summary [facility] Patient: MICHAEL ELIZONDO Age: 27 years Sex: Female : 1990 Associated Diagnoses: None Author: ENEDINA FOX MD Discharge Information Date of Admission: 10/14/17 05:50:00 . Discharge Instructions: Discharge Instructions: . Reason for Hospitalization: Scheduled .. Discharge Diagnosis: Diagnosis List delivery delivered H/O section . Discharge Meds: Med reconciliation done, Discharge Medication List Medication acetaminophen-oxyCODONE(acetaminophen-oxyCODONE 325 mg-5 mg oral tablet)(acetaminophen-oxyCODONE) 1 TAB By Mouth Every 4 hours PRN as needed for pain calcium carbonate(Tums)(calcium carbonate) 500 mg Chewed 4 TIMES A DAY PRN as needed for dyspepsia docusate(docusate sodium 100 mg oral capsule)(docusate) 100 mg 1 CAP By Mouth 2 TIMES A DAY ferrous sulfate 1 TAB By Mouth DAILY ibuprofen(ibuprofen 400 mg oral tablet)(ibuprofen) 800 mg 2 TAB By Mouth Every 8 hours PRN Moderate Pain Comment(s): (Motrin, Advil) Moderate Pain lanolin topical(Lansinoh for Breast Feeding Mothers)(lanolin topical) External Use EVERY HOUR PRN Other (see comment) multivitamin, 1 TAB By Mouth DAILY . Discharge Summary Document Name Signed Date Discharge Summary 10/17/2017 11:05:38 AM CDT Procedures: Repeat . Hospital Consults: No Consults Occurred. [Electronically Signed By:] ENEDINA CARVER MD On, 10/17/2017 11:05 AM 10/17/2017 [facility] Discharge Summary Discharge Summary Discharge Note Patient: MICHAEL CESAR Age: 23 years Sex: Female : 1990 Associated Diagnoses: None Author: EVELYNE RAMIRES MD Visit Information Condition: Eating, Ambulating, Normal urination, Normal lochia. Complaints: No fever Incisional pain: Mild. Uterine cramping: Mild. Discharge Information Discharge Instructions: , Discharge Instructions: : You are NOT viewing the most recent encounter. Discharge To: Home , Discharge Medication List Medication multivitamin, 1 TAB By Mouth DAILY f/u 2 weeks. Discharge Diagnosis: , Diagnosis List labor . PROBLEM LIST: 12/05/12 Active: Active: (mother) Hospital Course: uncomplicated Post course. Discharge Meds: Med reconciliation done. Physical Examination Vital signs: Discharge Summary VITALS: BP: 101 / 63 Pulse: 70 Temp: 98.1 Resp Rate: 16 Tmax: 98.1 Wt(kg): No weight recorded in last 24 hrs Pain Score: Pain Score 2 01/28/13 06:43 O2 Sat: 97 01/28/13 00:00 O2 Status: Room air 21% , Tmax [facility]. Max Temperature : 98.3 DegF Abdomen: Uterus firm, Not tender. Incision line inspected: clean dry and intact withour erythema. Lochia: Minimal. Legs: No edema. Objective Lab Results: , LABORATORY RESULTS: . LABORATORY RESULTS: Review / Management Assessment: Post day 4, Stable. Plan: d/c home, d/c mark. [Electronically Signed By:] EVELYNE RAMIRES MD On, 01/28/2013 08:34 AM 01/28/2013 [facility] Discharge Summary Discharge Summary OB Discharge Summary, cs* Patient: MICHAEL CESAR Age: 23 years Sex: Female : 1990 Associated Diagnoses: None Author: SHAHRZAD RAI, JENNIFER Meneses Results Review Information CPD Discharge Information Discharge Instructions: Activity: As tolerated. Diet: Ad kaylee. Discharge location: Home. Follow-up appointment: 2 weeks. The patient is 3 day(s) . Delivery date was 11/01/2012 by section. Coexisting conditions consist of none. Hospital Course Hospital Course Admitted from: from home. Length of stay: days 3. Delivery: Type of delivery scheduled section. Discharge Plan Discharge Summary Plan Discharge Status: stable. Discharge disposition: discharge to home self care. Prescriptions: reviewed with patient. Diagnosis Full term Operative delivery primary low flap section tubal ligation. Course Progressing as expected. Follow-up Return to office: in 2 weeks. [Electronically Signed By:] SHAHRZAD RAI, JENNIFER Meneses On, 01/27/2013 03:14 PM 01/27/2013 [facility] History and Physicals Results Value Date Source History and Physical History and Physical Document Name Signed Date History and Physical 10/14/2017 7:24:44 AM CDT Scheduled C/S Patient: MICHAEL ELIZONDO Age: 27 years Sex: Female : 1990 Associated Diagnoses: None Author: IKE RAI, EVELYNE Hathaway Admission Information Maternal History: 3, Para 1103, Prior section, H&P reviewed, patient examined, no changes . Gestational Age: 39 weeks by LMP. Presenting to L&D: For scheduled section. care: See records. ultrasound: Fetus without abnormality, posterior placenta, margina cord insertion. labs: See records. medical problems: None. Allergy Profile: Allergy LIST: codeine . Medication List: Home Medication List Medication acetaminophen(Tylenol)(acetaminophen) 2 TAB By Mouth Every 6 hours PRN as needed for pain calcium carbonate(Tums)(calcium carbonate) 500 mg Chewed 4 TIMES A DAY PRN as needed for dyspepsia ferrous sulfate 1 TAB By Mouth DAILY multivitamin, 1 TAB By Mouth DAILY . Past Medical History: HEALTH HISTORY Patient Patient Anemia.... Patient Anxiety.. Patient Asthma Patient section Patient Chicken pox.... Patient Cholecystectomy Patient History and Physical Document Name Signed Date History and Physical 10/14/2017 7:24:44 AM CDT Colonoscopy Patient Endometriosis Patient Glasses Patient Heart murmur Patient Heartburn Patient Kidney infection.. Patient Migraine Patient Ovarian cyst. Patient Pneumonia Patient Scoliosis Patient Seasonal allergies. Patient Syncope Patient TMJ (dislocation of temporomandibular joint).. Patient UTI (urinary tract infection).. Patient [place] tooth Patient . Physical Examination Obstetric exam: Vital signs: VITALS: BP: 111 / 55 Pulse: 86 Temp: 98.7 Resp Rate: Tmax: 98.7 Wt(kg): 72 Pain Score: O2 Sat: , Tmax [facility] Max Temperature : 98.7 DegF . Lungs: Clear to auscultation. Heart: Regular rhythm. Abdomen: Normal term fundus. presentation: Cephalic. monitoring: Reassuring. Results Review Lab Results LABORATORY RESULTS: History and Physical Document Name Signed Date History and Physical 10/14/2017 7:24:44 AM CDT CBC and Plt w/o Diff 10/14/17 06:53 Instr WBC 8.8 WBC 8.8 RBC 4 HGB 11.8 L HCT 36 MCV 89 MCH 30 MCHC 33 RDW 17.5 H RDW SD 57.1 Platelet 144 MPV 12.5 H Review / Management Documentation reviewed: Patient examined, H&P reviewed: No changes. Review / Management OB Assessment: Term : Cephalic presentation, Uncomplicated. indications: Previous . Plan: section. [Electronically Signed By:] EVELYNE MEZA MD On, 10/14/2017 07:24 AM 10/14/2017 [facility] History and Physical History and Physical Labor Room Admit Note [facility] Patient: MICHAEL CESAR Age: 23 years Sex: Female : [birth year] Associated Diagnoses: None Author: IRVING MONTANA MD Admission Information Maternal History: 2, Para 1, twin gestation. Gestational Age: 32.0 weeks by LMP. Presenting to L&D: contraction. care: See records. medical problems: Multiple gestation ( Twins ). Condition: In labor. Review of Systems Constitutional: Negative. Respiratory: Negative. Cardiovascular: Negative. Gastrointestinal: Negative. Physical Examination Obstetric exam: Vital signs: VITALS: BP: 109 / 63 Pulse: 141 Temp: 98.6 Resp Rate: 16 Tmax: 98.6 Wt(kg): 70.76 Pain Score: Pain Score 6 01/22/13 18:09 O2 Sat: . Lungs: Clear to auscultation. Heart: Regular rhythm. Genitalia: Vaginal discharge, positive yeast. Cervix: Fingertip, Cervical effacement ( 25% ), Station ( +1 ). presentation: Cephalic, Breech. monitoring: Reassuring. Results Review Lab Results History and Physical LABORATORY RESULTS: Urinalysis POC SMM 01/22/13 17:26 UA SpGr POC SMM 1.02 UA pH POC SMM 7 UA Prot POC SMM Negative UA Glu POC SMM Negative UA Ket POC SMM >=160* UA Bili POC SMM Negative UA Bld POC SMM Trace-Intact* UA Nit POC SMM Negative UA LeukEst POC SMM Large* UA UBG POC SMM 0.2 Review / Management OB Assessment: Premature labor. Plan: Glucocorticoids for prematurity, Hydration/tocolysis if necessary. [Electronically Signed By:] IRVING MONTANA MD On, 01/22/2013 06:25 PM Addendum by IRVING MONTANA MD on 22 January 2013 18:35 GBS prophylaxis Previous C/S [Electronically Signed By:] IRVING MONTANA MD On, 01/22/2013 06:35 PM 01/22/2013 [facility] Vital Signs Vital Sign Value Date Comments Source NIBP MAP Calc 75 10/17/2017 [facility] er Respiratory Rate 16 br/min 10/17/2017 [facility] Inet NIBP Systolic 105 mm[Hg] 10/17/2017 [facility] Inet NIBP Diastolic 60 mm[Hg] 10/17/2017 [facility] Heart Rate Location Auto BP ( 8:00 AM) 10/17/2017 [facility] Vital Signs Status/Type Routin e Assessment (10/17/17 8:00 AM) 10/17/2017 [facility] Temperature 98.6 [degF] 10/17/2017 [facility] Heart Rate 75 bpm 10/17/2017 [facility] er Temp Method Oral (10/17/17 8:00 AM) 10/17/2017 [facility] BP Location Arm, left (10/15/17 8:45 PM) 10/16/2017 [facility] BP Cuff Size Medium (10/15/17 1 :00 PM) 10/15/2017 [facility] NIBP MAP 70 mm[Hg] 10/14/2017 [facility] er NIBP MAP Calc 84 10/09/2017 [facility] er Heart Rate 104 bpm 10/09/2017 [facility] er Inet NIBP Systolic 116 mm[Hg] 10/09/2017 [facility] Inet NIBP Diastolic 68 mm[Hg] 10/09/2017 [facility] BP Diastolic 70 mm[Hg] 08/13/2017 [facility] Height 63 [in_i] 08/13/2017 [facility] BMI (Body Mass Index) 25.9 kg/ m2 08/13/2017 [facility] BP Systolic 118 mm[Hg] 08/13/2017 [facility] Body Weight 146 [lb_av] 08/13/2017 [facility] NIBP MAP Calc 70 08/06/2017 [facility] er Respiratory Rate 16 br/min 08/06/2017 [facility] Temp Method Oral (08/06/17 4:13 PM) 08/06/2017 [facility] Temperature 98.3 [degF] 08/06/2017 [facility] Vital Signs Status/Type Routin e Assessment (08/06/17 4:13 PM) 08/06/2017 [facility] Heart Rate 80 bpm 08/06/2017 [facility] er Inet NIBP Systolic 93 mm[Hg] 08/06/2017 [facility] Inet NIBP Diastolic 58 mm[Hg] 08/06/2017 [facility] [facility] Oral (07/30/17 1:50 PM) 07/30/2017 [facility] NIBP MAP Calc 73 07/30/2017 [facility] er Inet NIBP Systolic 105 mm[Hg] 07/30/2017 [facility] Inet NIBP Diastolic 57 mm[Hg] 07/30/2017 [facility] Temperature 98.6 [degF] 07/30/2017 [facility] Vital Signs Status/Type Routin e Assessment (07/30/17 1:50 PM) 07/30/2017 [facility] Temperature 97.1 DegF 04/28/2010 [facility] er Heart Rate 79 bpm 04/28/2010 [facility] er Temp Method Probe (04/28/2010 08:00:00) 04/28/2010 [facility] Heart Rate Location Auto BP (0 04/28/2010 08:00:00) 04/28/2010 [facility] Respiratory Rate 18 br/min 04/28/2010 [facility] NIBP MAP Calc 74 04/28/2010 [facility] Inet NIBP Diastolic 62 mmHg 04/28/2010 [facility] Inet NIBP Systolic 97 mmHg 04/28/2010 [facility] BP Location Arm, left ( 011 23:25:00) 04/26/2010 [facility] Heart Rhythm Sinus/atrial rhyt hm (04/25/2010 23:25:00) 04/26/2010 [facility] Inet NIBP Diastolic 67 mmHg 02/11/2010 [facility] Inet NIBP Systolic 117 mmHg 02/11/2010 [facility] Heart Rate 74 bpm 02/11/2010 [facility] er NIBP MAP Calc 84 02/11/2010 [facility] er Temp Method Oral (02/10/2010 2 2:00:00) 02/11/2010 [facility] Temperature 97.4 DegF 02/11/2010 [facility] er Encounters Location Location Details Encounter Type Encounter Number Reason For Visit Attending Provider ADM Date DC Date Status Source 006 006 I [id number] C SECT CHAYITO MENDEZ MD 10/14/2017 10/17/2017 Active [facility] 006 006 T [id number] ROR CHAYITO MENDEZ MD 10/09/2017 10/09/2017 Active [facility] Outpatient [id number] WESLY WILT DO 09/03/2017 09/04/2017 [facility] Outpatient [id number] WESLY WILT DO 08/13/2017 08/14/2017 [facility], DO: [address] [address], Ph. [phone] [id number] Wesly Wilt 08/13/2017 [facility] Observation [id number] CHAYITO MENDEZ MD 08/06/2017 08/06/2017 [facility] Observation [id number] CHAYITO MENDEZ MD 07/30/2017 07/30/2017 [facility] 006 006 O [id number] NICOLETTE MARKHAM MD 01/24/2013 01/24/2013 Active [facility] 006 006 I [id number] NICOLETTE MARKHAM MD 01/22/2013 01/28/2013 Active [facility] 006 006 O [id number] NICOLETTE MARKHAM MD 01/22/2013 01/22/2013 Active [facility] 006 006 T [id number] NICOLETTE MARKHAM MD 12/05/2012 12/05/2012 Active [facility] 006 006 O [id number] DI/DI TWINS ADRIANA AVENDANO MD 11/28/2012 11/28/2012 Active [facility] 006 006 O [id number] JOHN CLAIR DUKES MD 11/07/2012 11/07/2012 Active [facility] ssion Procedures Procedure Code Date Perfomer Comments Source Section (Uncomplicated)<sup>1</sup> 10/14/2017 auto- populated from documented surgical case [facility] electrocardiogram 08/13/2017 [facility] 08/13/2017 [facility] cervical section [id number] 04/25/2010 [facility] Medical induction of labor C02 [id number] 04/24/2010 [facility] Plan of Care Plan of Care Date Source Reminders Provider Appointments Return to Office on or around 09/10/2017 Wesly Brown, DO Lab TSH, Serum or Plasma 08/13/2017 [facility] T4, Free, Serum 08/13/2017 [facility] T3, Free, Serum or Plasma 08/13/2017 [facility] Magnesium, Serum or Plasma 08/13/2017 [facility] CBC W/ Diff 08/13/2017 [facility] BMP, Blood 08/13/2017 [facility] Referral None recorded. Procedures Trans-thoracic Echocardiogram (TTE) (PROC) 08/13/2017 Surgeries None recorded. Imaging Electrocardiogram 08/13/2017 [facility] Event Monitor 08/13/2017 08/13/2017 [facility] Reminders Provider Appointments Return to Office on or around 09/10/2017 Wesly Brown, DO Lab TSH, Serum or Plasma 08/13/2017 [facility] T4, Free, Serum 08/13/2017 [facility] T3, Free, Serum or Plasma 08/13/2017 [facility] Magnesium, Serum or Plasma 08/13/2017 [facility] CBC W/ Diff 08/13/2017 [facility] BMP, Blood 08/13/2017 [facility] Referral None recorded. Procedures Trans-thoracic Echocardiogram (TTE) (PROC) 08/13/2017 Surgeries None recorded. Imaging Electrocardiogram 08/13/2017 [facility] Event Monitor 08/13/2017 08/13/2017 [facility] Provider Appointments Return to Office on or around 09/10/2017 Wesly Brown DO Lab TSH, Serum or Plasma 08/13/2017 [facility] T4, Free, Serum 08/13/2017 [facility] T3, Free, Serum or Plasma 08/13/2017 [facility] Magnesium, Serum or Plasma 08/13/2017 [facility] CBC W/ Diff 08/13/2017 [facility] BMP, Blood 08/13/2017 [facility] Referral None recorded. Procedures Trans-thoracic Echocardiogram (TTE) (PROC) 08/13/2017 Surgeries None recorded. Imaging Electrocardiogram 08/13/2017 [facility] Event Monitor 08/13/2017 08/13/2017 [facility] Provider Appointments Return to Office on or around 09/10/2017 Wesly Brown DO Lab TSH, Serum or Plasma 08/13/2017 [facility] T4, Free, Serum 08/13/2017 [facility] T3, Free, Serum or Plasma 08/13/2017 [facility] Magnesium, Serum or Plasma 08/13/2017 [facility] CBC W/ Diff 08/13/2017 [facility] BMP, Blood 08/13/2017 [facility] Referral None recorded. Procedures Trans-thoracic Echocardiogram (TTE) (PROC) 08/13/2017 Surgeries None recorded. Imaging Electrocardiogram 08/13/2017 [facility] Event Monitor 08/13/2017 08/13/2017 [facility] Provider Appointments Return to Office on or around 09/10/2017 Wesly Brown, DO Lab TSH, Serum or Plasma 08/13/2017 [facility] T4, Free, Serum 08/13/2017 [facility] T3, Free, Serum or Plasma 08/13/2017 [facility] Magnesium, Serum or Plasma 08/13/2017 [facility] CBC W/ Diff 08/13/2017 [facility] BMP, Blood 08/13/2017 [facility] Referral None recorded. Procedures Trans-thoracic Echocardiogram (TTE) (PROC) 08/13/2017 Surgeries None recorded. Imaging Electrocardiogram 08/13/2017 [facility] Event Monitor 08/13/2017 08/13/2017 [facility] Provider Appointments Return to Office on or around 09/10/2017 Weslyjusto Brown, DO Lab TSH, Serum or Plasma 08/13/2017 [facility] T4, Free, Serum 08/13/2017 [facility] T3, Free, Serum or Plasma 08/13/2017 [facility] Magnesium, Serum or Plasma 08/13/2017 [facility] CBC W/ Diff 08/13/2017 [facility] BMP, Blood 08/13/2017 [facility] Referral None recorded. Procedures Trans-thoracic Echocardiogram (TTE) (PROC) 08/13/2017 Surgeries None recorded. Imaging Electrocardiogram 08/13/2017 [facility] Event Monitor 08/13/2017 08/13/2017 [facility] Rem[facility] Provider Appointments Return to Office on or around 09/10/2017 Weslyjusto Brown DO Lab TSH, Serum or Plasma 08/13/2017 [facility] T4, Free, Serum 08/13/2017 [facility] [place] [facility] T3, Free, Serum or Plasma 08/13/2017 [facility] [place] [facility]) Magnesium, Serum or Plasma 08/13/2017 [facility] [place] [facility] CBC W/ Diff 08/13/2017 [facility] [place] [facility]) BMP, Blood 08/13/2017 [facility] [place] [facility]) Referral None recorded. Procedures Trans-thoracic Echocardiogram (TTE) (PROC) 08/13/2017 Surgeries None recorded. Imaging Electrocardiogram 08/13/2017 [facility] Event Monitor 08/13/2017 08/13/2017 [facility] Social History Social History Date Source Smoking Status Never Smoker 08/13/2017 [facility] Assessment and Plan No Data Provided for This Section Family History No Data Provided for This Section Advance Directives No Data Provided for This Section Functional Status No Data Provided for This Section
--- OUTSIDE RECORDS SUMMARY | 2019-09-12 19:58 | XMS REPORT ---
Author Organization Unknown Address [address] [place] [address] Phone [phone] Care Team Providers Care Supervisor Char House Name Role Phone Wesly Brown DO 83 [phone] Reason for Visit dizziness Assessment and Plan The following list includes any diagnoses that were discussed at your visit. 1. Syncope electrocardiogram fainting: care instructions lightheadedness or faintness: care ins tructions TSH, serum or plasma T4, free, serum T3, free, serum or plasma event monitor trans-thoracic echocardiogram (TTE) (P ANA MARIA) magnesium, serum or plasma CBC w/ diff BMP, blood 2. Systolic murmur 3. Thyroid function tests abnormal 4. Borderline blood pressure Discussion Note: None recorded. Plan of Care Reminders Provider Appointments Return to Office on or around 09/10/2017 Wesly Brown DO Lab TSH, Serum or Plasma 08/13/2017 [facility] [place] [facility] [facility] T4, Free, Serum 08/13/2017 [facility] [place] ( [facility]) T3, Free, Serum or Plasma 08/13/2017 [facility] [place] ([facility]) Magnesium, Serum or Plasma 08/13/2017 [facility] [place] ([facility]) CBC W/ Diff 08/13/2017 [facility] [place] ( [facility]) BMP, Blood 08/13/2017 [facility] [place] ( [facility]) Referral None recorded. Procedures Trans-thoracic Echocardiogram (TTE) (PROC) 08/13 Surgeries None recorded. Imaging Electrocardiogram 08/13/2017 [facility] Event Monitor 08/13/2017 Current Medications Your medical record indicates you are on the following medicine. If this list is not consistentwith the medications you are currently taking, or if you are taki ng additional oery-nte-jsrwygp medicines, pleaseinform your provider. Name Prescribed Date Start Date iron 45mg qd Vitamin 1 po qd Medications Administered None recorded. Vitals Height Weight BMI Blood Pressure Pulse Blood Pressur e Cuff Size Body Surface Area 5 ft 3 in 146 lbs 25.9 kg/m2 118/70 mm[Hg] 78 bpm re gular adult 1.72 Lab Results Date Name Specimen Result Interpretation Description Value Range Status Address Electrocardiogram No observation recorded. [facility]: [address], [facility] Allergies Please review your allergy list for accuracy. Contact your provider if this list needs to be updated. Code Code System Name Reaction Severity Onset 914 RxNorm Codeine Chest Pain Problems Name Status Onset Date Source Active 08/13/2017 Procedures Date Name Performed by 08/13/2017 Electrocardiogram [facility] [address] [place] [id number] (Work Place) 08/13/2017 Event Monitor Information not avai lable Vaccine List Here is a copy of your most up-to-date vaccination list. None recorded. Smoking Status Smoking Status Never Smoker Past Encounters 08/13/2017 Syncope; Systolic Murmur; Thyroid Function Tests Abnormal; Borderline Blood Pressure Wesly Brown, DO: [address], [place] [address], Ph. [phone]
--- OUTSIDE RECORDS SUMMARY | 2019-09-12 19:58 | XMS REPORT | Summary of Care ---
Author Author [facility] er Organization [facility] er Address Unknown Phone Unavailable Care Team Providers Care Employment Law Attorney Name Role Phone JON COULTER MD PCP PCP MD, NO PCP Unavailable Encounter [facility] [id number] Date(s): 10/14/17 - 10/17/[address] [id number] Encounter Diagnosis H/O section (Discharge Diagnosis) - 10/14/17 delivery delivered (Discharge Diagnosis) - 10/14/17 Discharge Disposition: Home - Attending Physician: CHAYITO MENDEZ MD Admitting Physician: CHAYITO MENDEZ MD Vital Signs Most recent to 1 oldest [Reference Range]: Vital Signs Routine Assessment Status/Type (10/17/17 8:00 AM) Temperature 98.6 DegF [96.8-99.7 DegF] (10/17/17 8:00 AM) Temp Method Oral (10/17/17 8:00 AM) Heart Rate 75 bpm (10/17/17 8:00 AM) Heart Rate Location Auto BP (10/17/17 8:00 AM) Respiratory Rate 16 br/min [15-20 br/min] (10/17/17 8:00 AM) Blood Pressure 105/60 mmHg [90-180/50-90 mmHg] (10/17/17 8:00 AM) NIBP MAP 70 mmHg (10/14/17 12:45 PM) NIBP MAP Calc 75 (10/17/17 8:00 AM) BP Location Arm, left (10/15/17 8:45 PM) BP Cuff Size Medium (10/15/17 1:00 PM) Problem List Condition Effective Dates Status Health Status Informan t No Chronic Problems1 Active (Confirmed) 07/30/17 - 10/14/17 Resolved 2 (Confirmed) 12/05/12 - 01/24/13 Resolved 3 (Confirmed) < 04/25/10 Resolved 1Generated from Physician Discharge Information Form. 2Updated by Discern Expert 3Added by Discern Expert Allergies, Adverse Reactions, Alerts Substance Reaction Severity Status codeine chest pain Active Medications acetaminophen-oxyCODONE 325 mg-5 mg oral tablet 1 TAB, PO, Q4H (Every 4 hours), PRN as needed for pain, # 12 TAB, 0 Refill(s), I ndication: Moderate Pain Start Date: 10/17/17 Stop Date: 10/20/17 Status: Ordered docusate sodium 100 mg oral capsule 1 CAP, PO, BID (2 times a day), 0 Refill(s) Start Date: 10/17/17 Status: Ordered ferrous sulfate = 1 TAB, PO, Daily, 0 Refill(s), Indication: Anemia Start Date: 10/08/17 Status: Ordered ibuprofen 400 mg oral tablet 2 TAB, PO, Q8H (Every 8 hours), PRN Moderate Pain, # 10 TAB, 0 Refill(s), (Motri n, Advil), Indication: Cramping Start Date: 10/17/17 Stop Date: 10/21/17 Status: Ordered Lansinoh for Breast Feeding Mothers TOP, Q1H (Every hour), PRN Other (see comment), 0 Refill(s) Start Date: 10/17/17 Status: Ordered Tums 500 mg, Chewed, 4 times a day, PRN as needed for dyspepsia, 0 Refill(s), Indicat ion: Heartburn Start Date: 10/08/17 Status: Ordered Results BLOOD GASES Most recent to 1 2 oldest [Reference Range]: pH Cord Blood 7.287 7.350 *NA* *NA* (10/14/17 8:31 AM) (10/14/17 8:31 AM) pCO2 Cord Blood 52.8 mmHg 42.7 mmHg *NA* *NA* (10/14/17 8:31 AM) (10/14/17 8:31 AM) pO2 Cord Blood 15 mmHg 27 mmHg *NA* *NA* (10/14/17 8:31 AM) (10/14/17 8:31 AM) BE Cord Blood -1 mmol/L -2 mmol/L *NA* *NA* (10/14/17 8:31 AM) (10/14/17 8:31 AM) HCO3 Cord Blood 25.2 mmol/L 23.6 mmol/L *NA* *NA* (10/14/17 8:31 AM) (10/14/17 8:31 AM) TCO2 Cord Blood 27.0 mmol/L 25.0 mmol/L *NA* *NA* (10/14/17 8:31 AM) (10/14/17 8:31 AM) O2 Sat Cord Blood 15 % 46 % *NA* *NA* (10/14/17 8:31 AM) (10/14/17 8:31 AM) Sample Type Cord Blood Cord Blood *NA* *NA* (10/14/17 8:31 AM) (10/14/17 8:31 AM) Site of Collection Art Cord Gabe Cord *NA* *NA* (10/14/17 8:31 AM) (10/14/17 8:31 AM) Chava Test Not Applicable Not Applicable *NA* *NA* (10/14/17 8:31 AM) (10/14/17 8:31 AM) Drawn by RN 1 RN 2 *NA* *NA* (10/14/17 8:31 AM) (10/14/17 8:31 AM) Device Room Air Room Air *NA* *NA* (10/14/17 8:31 AM) (10/14/17 8:31 AM) 1Result Comment: Meter ID: [id number] Director Of Staff Development: [id number] CELESTE ALARCON 2Result Comment: Meter ID: [id number] Director Of Staff Development: [id number] CELESTE ALARCON HEMATOLOGY Most recent to 1 2 oldest [Reference Range]: WBC [4.0-11.0 8.2 x10'3/microL x10'3/microL] (10/15/17 7:17 AM) RBC [3.90-5.60 3.55 x10'6/microL x10'6/microL] *LOW* (10/15/17 7:17 AM) Hgb [12.0-16.0 g/dL] 10.3 g/dL *LOW* (10/15/17 7:17 AM) Hct [35-47 %] 32 % *LOW* (10/15/17 7:17 AM) Platelet [140-400 99 x10'3/microL x10'3/microL] *LOW* (10/15/17 7:17 AM) MCV [81-99 fL] 91 fL (10/15/17 7:17 AM) MCH [27-34 pg] 29 pg (10/15/17 7:17 AM) MCHC [30-36 g/dL] 32 g/dL (10/15/17 7:17 AM) RDW [<=16.4 %] 17.8 % *HI* (10/15/17 7:17 AM) MPV [6.5-10.4 fL] 12.7 fL *HI* (10/15/17 7:17 AM) Immature Platelet 13.1 % Fraction [1.0-4.8 %] *HI* (10/15/17 7:17 AM) BLOOD BANK Most recent to 1 2 oldest [Reference Range]: FetSC? No (10/14/17 6:53 AM) RhIG? No (10/14/17 6:53 AM) ABORh O POS *Unknown* (10/14/17 6:53 AM) ABSC Gel Interp Negative (10/14/17 6:53 AM) Immunizations Given and Recorded Vaccine Date Status Refusal Reason diphtheria/pertussis, acel/tetanus adult 04/28/10 Given Procedures Procedure Date Related Diagnosis Body Site Status Section (Uncomplicated)1 10/14/17 Comp leted 1auto-populated from documented surgical case Social History No data available for this section Functional Status No data available for this section Assessment and Plan No data available for this section Hospital Discharge Instructions No data available for this section
--- OUTSIDE RECORDS SUMMARY | 2019-09-12 19:59 | XMS REPORT ---
Author Author [employer] handbag [employer] [facility] [employer] [place] [employer] Address [address] [address] Care Team Providers Care Floor Tech Name Role Phone JON LR MD Unavailable Unavailable Jon Lr Unavailable Unavailable Unavailable Unavailable WAI BUSH DO Unavailable Unavailable MD Diego LR PCP Unavailable Unavailable Unavailable Unavailable Unavailable Unavailable Unavailable Unavailable Allergies Normalized Allergy Reported Date of Reaction(s) Care Provider Facility Allergy Type classification allergen Allergy Onset Drug Allergy Opioid Codeine 09-12-2019 - no information MD CAROLINE LR [place] [facility] (1 source.) Agonists [id number] (Work Daniela Phone: Hospital ([phone]) ) DA (1 source.) Unclassified No Known Drug 04-17-2014 - no inform ation JON LR MD [facility] Via Allergies [facility] ([id number]) Medications Medication Ingredient Drug Dose Dates Status Sig Sig Care Class(es) (Normalized) (Original) Provid er nitrofurant NITROFURANT Nitrofuran 09-12-19 Active no Nitrof uranto no oin, OIN, Antibacteri 20 information in na me macrocrysta MACROCRYSTA al Monohyd/M-Cr ls 25 mg / LS / yst Active 1 nitrofurant Nitrofurant ORAL Twice A oin, oin, Day 10 5 August monohydrate Monohydrate 2019 75 mg oral 4:49pm capsule (1 source.) Problems Active Problems Problem Normalized Date Last Normalized Normalized Provider Fa cility Classification Problem(s) Recorded Problem Problem Sta tus Duration Headache; Chronic Chronic Active JON LR MD [facility] Via including paroxysmal [facility] migraine (1 hemicrania, Hospital - source.) not [place] intractable ([id number]) Past or Other Problems Problem Normalized Date Last Normalized Normalized Provider Fa cility Classification Problem(s) Recorded Problem Problem Sta tus Duration Residual Family history Episodic Completed JON LR MD [facility] Via [facility]; [facility] - (1 source.) and other [place] diseases of ([address]) the circulatory system Procedures Procedure Normalized Procedure Procedure Result Performer Facility Date 09-12-2019 Electrocardiographic no information no name As [facility]ension [facility] (10251) Immunizations The data below is from unstructured sourcesNo Immunization Information Available Results Test Name Value Interpretation Reference Range Date Time Fa cility (Normalized) (Normalized) (Medline Reference) laboratory on 2019-09-12 Albumin 3.5 g/dL (NEG) 3.4 - 5.4 g/dL 09-12-2019 PENDING LOCATION [Mass/Vol] 11:50-0400 [facility] ([id number]) ALP [Catalytic 66 U/L (NEG) 44 - 147 U/L 09-12-2019 PEND ING LOCATION activity/Vol] 11:50-0400 [facility] ([id number]) ALT [Catalytic 7 U/L (NEG) 4 - 40 U/L 09-12-2019 PENDIN G LOCATION activity/Vol] 11:50-0400 [facility] ([id number]) Anion gap 13 mmol/L (NEG) 3 - 11 mmol/L 09-12-2019 PENDING LOCATION [Moles/Vol] 11:50-0400 [facility] ([id number]) AST [Catalytic 14 U/L (NEG) 10 - 34 U/L 09-12-2019 PENDI NG LOCATION activity/Vol] 11:50-0400 [facility] ([id number]) Bacteria LM Ql MODERATE (A) 09-12-2019 PENDING LOC ATION (Urine sed) 11:30-0400 [facility] ([id number]) Basophils (Bld) 0.0 10*3/uL (NEG) 0 - 0.3 10*3/uL 09-12-2019 PENDING LOCATION [#/Vol] 11:50-0400 [facility] ([id number]) Basophils/100 0 % (NEG) 0.5 - 1 % 09-12-2019 PENDING LOCATION WBC (Bld) 11:50-0400 [facility] ([id number]) Bilirubin 0.3 mg/dL (NEG) 0.1 - 1.2 mg/dL 09-12-2019 PENDIN G LOCATION [Mass/Vol] 11:50-0400 [facility] ([id number]) Bilirubin Ql (U) Negative (no code) 09-12-2019 PENDING L OCATION 11:30-0400 [facility] (74387) Calcium 8.3 mg/dL (L) 8.5 - 10.2 mg/dL 09-12-2019 PENDI NG LOCATION [Mass/Vol] 11:50-0400 [facility] ([id number]) Calcium 8.7 mg/dL (NEG) 8.5 - 10.2 mg/dL 09-12-2019 PENDI NG LOCATION [Mass/Vol] 11:50-0400 [facility] (34093) Casts LM Ql NONE (no code) 09-12-2019 PENDING LOCATI ON (Urine sed) 11:30-0400 [facility] ([id number]) Chloride 103 mmol/L (NEG) 95 - 106 mmol/L 09-12-2019 PENDI NG LOCATION [Moles/Vol] 11:50-0400 [facility] ([id number]) Clarity (U) SL CLOUDY (no code) 09-12-2019 PENDING LOCATI ON 11:30-0400 [facility] ([id number]) CO2 [Moles/Vol] 21 mmol/L (NEG) 23 - 29 mmol/L 09-12-2019 P ENDING LOCATION 11:50-0400 [facility] (59079) Color (U) YELLOW (no code) 09-12-2019 PENDING LOCATI ON 11:30-0400 [facility] ([id number]) Creatinine 0.41 mg/dL (L) 09-12-2019 PENDING LOCATI ON [Mass/Vol] 11:50-0400 [facility] (05925) Creatinine and > (no code) 09-12-2019 PENDING LOC ATION Glomerular 11:50-0400 [facility] (31592) filtration rate.predicted panel - Serum, Plasma or Blood Crystals LM Ql NONE (no code) 09-12-2019 PENDING LOC ATION (Urine sed) 11:30-0400 [facility] ([id number]) Eosinophils 0.1 10*3/uL (NEG) 0.05 - 0.5 09-12-2019 PENDING LOCATION (Bld) [#/Vol] 10*3/uL 11:50-0400 [facility] ([id number]) Eosinophils/100 1 % (NEG) 1 - 4 % 09-12-2019 PENDIN G LOCATION WBC (Bld) 11:50-0400 [facility] (41277) Epithelial 25-50 (A) 09-12-2019 PENDING LOCATI ON cells.squamous 11:30-0400 [facility] ([id number]) LM Ql (Urine sed) Erythrocyte 14.3 % (NEG) 11.6 - 14.6 % 09-12-2019 PENDIN G LOCATION distribution 11:50-0400 [facility] ([id number]) width (RBC) [Ratio] Glucose 77 mg/dL (NEG) 60 - 125 mg/dL 09-12-2019 PENDING LOCATION [Mass/Vol] 11:50-0400 [facility] ([id number]) Glucose Auto Negative (no code) 09-12-2019 PENDING LOCAT ION test strip Ql 11:30-0400 [facility] ([id number]) (U) Hematocrit (Bld) 34 % (L) 36.1 - 50.3 % 09-12-2019 P ENDING LOCATION [Volume 11:50-0400 [facility] (79077) fraction] Hemoglobin (Bld) 11.6 g/dL (NEG) 12.1 - 17.2 g/dL 09-12-2019 PENDING LOCATION [Mass/Vol] 11:50-0400 [facility] (59670) Ketones Auto 2+ (A) 09-12-2019 PENDING LOCAT ION test strip Ql 11:30-0400 [facility] (74294) (U) Leukocyte 3+ (A) 09-12-2019 PENDING LOCATI ON esterase Test 11:30-0400 [facility] ([id number]) strip Ql (U) Lymphocytes 1.3 10*3/uL (NEG) 0.9 - 2.9 09-12-2019 PENDING LOCATION (Bld) [#/Vol] 10*3/uL 11:50-0400 [facility] (43708) Lymphocytes/100 12 % (NEG) 20 - 40 % 09-12-2019 PENDIN G LOCATION WBC (Bld) 11:50-0400 [facility] ([id number]) MCH (RBC) 29 pg (NEG) 27 - 31 pg 09-12-2019 PENDING LOC ATION [Entitic mass] 11:50-0400 [facility] (28293) MCHC (RBC) 34 g/dL (NEG) 32 - 36 g/dL 09-12-2019 PENDING LOCATION [Mass/Vol] 11:50-0400 [facility] (89002) MCV (RBC) 87 (NEG) 09-12-2019 PENDING LOCATI ON [Entitic vol] 11:50-0400 [facility] (41913) Monocytes (Bld) 0.8 10*3/uL (NEG) 0.3 - 0.9 09-12-2019 PEND ING LOCATION [#/Vol] 10*3/uL 11:50-0400 [facility] (13772) Monocytes/100 4 % (NEG) 2 - 8 % 09-12-2019 PENDING LOCATION WBC (Bld) 11:50-0400 [facility] (83957) Mucus Ql (Urine MODERATE (A) 09-12-2019 PENDING LO CATION sed) 11:30-0400 [facility] ([id number]) Neutrophils 9.1 10*3/uL (H) 1.7 - 7 10*3/uL 09-12-2019 PE NDING LOCATION (Bld) [#/Vol] 11:50-0400 [facility] ([id number]) Neutrophils/100 84 % (H) 40 - 60 % 09-12-2019 PENDIN G LOCATION WBC (Bld) 11:50-0400 [facility] ([id number]) Nitrite Ql (U) Negative (no code) 09-12-2019 PENDING LOC ATION 11:30-0400 [facility] (46343) pH (U) 6.0 [pH] (no code) 4.6 - 8 [pH] 09-12-2019 PENDING L OCATION 11:30-0400 [facility] (02436) Platelet mean 11.5 (H) 09-12-2019 PENDING LOCA TION volume (Bld) 11:50-0400 [facility] (34915) [Entitic vol] Platelets (Bld) 205 10*3/uL (NEG) 150 - 450 09-12-2019 PEND ING LOCATION [#/Vol] 10*3/uL 11:50-0400 [facility] (25695) Potassium 3.8 mmol/L (NEG) 3.7 - 5.2 mmol/L 09-12-2019 PEND ING LOCATION [Moles/Vol] 11:50-0400 [facility] (39132) Protein 6.2 g/dL (L) 6.4 - 8.3 g/dL 09-12-2019 PENDING LOCATION [Mass/Vol] 11:50-0400 [facility] (78501) Protein Ql (U) Negative (no code) 09-12-2019 PENDING LOC ATION 11:30-0400 [facility] (03395) RBC (Bld) 3.94 10*6/uL (L) 4.2 - 6.1 09-12-2019 PENDING L OCATION [#/Vol] 10*6/uL 11:50-0400 [facility] (46577) RBC LM.HPF NONE (no code) 09-12-2019 PENDING LOCATI ON (Urine sed) 11:30-0400 [facility] (12590) [#/Area] RBC Ql (U) Negative (no code) 09-12-2019 PENDING LOCATI ON 11:30-0400 [facility] (84378) Sodium 137 mmol/L (NEG) 135 - 145 mmol/L 09-12-2019 PEND ING LOCATION [Moles/Vol] 11:50-0400 [facility] (59582) Specific gravity 1.020 (no code) 09-12-2019 PENDING L OCATION (U) [Rel 11:300400 [facility] (46578) density] Urea nitrogen 6 mg/dL (L) 7 - 20 mg/dL 09-12-2019 PENDI NG LOCATION [Mass/Vol] 11:50-0400 [facility] (32758) Urea 15 mg/mg (no code) 6 - 22 mg/mg 09-12-2019 PENDING L OCATION nitrogen/Creatin 11:50-0400 [facility] (98764) ine [Mass ratio] Urinalysis YES (no code) 09-12-2019 PENDING LOCATI ON complete W 11:30-0400 [facility] ([id number]) Reflex Culture panel - Urine Urobilinogen (U) 0.2 mg/dL (no code) 09-12-2019 PENDING L OCATION [Mass/Vol] 11:30-0400 [facility] ([id number]) WBC (Bld) 10.8 10*3/uL (NEG) 3.5 - 10.5 09-12-2019 PENDING LOCATION [#/Vol] 10*3/uL 11:50-0400 [facility] (64805) WBC LM.HPF no information (A) 09-12-2019 PENDING LOC ATION (Urine sed) 11:30-0400 [facility] ([id number]) [#/Area] laboratory on 2019-07-19 Bacteria SEE NOTE (no code) [facility] (54184) Bacteria SEE NOTE (no code) [facility] (82151) not yet categorized on 2019-04-22 Control Neg~Pass (no code) [facility] (00857) Control NEg~Neg~pass (no code) [facility] (35754) Exp date (no code) [facility] (47874) Exp date 09/16/2020 (no code) [facility] ([id number]) Lot # [id number] (no code) [facility] ([id number]) Lot # [id number] (no code) [facility] ([id number]) Vital Signs The data below is from unstructured sources Vital Reading Result Col lection Date/Time Interventions No Information Plan of Treatment Normalized Care Care Detail Care Activity Date Care Provider F acility Activity Bacteria identified no information no information MD JON LR [phone] Cx [address] (U) (Work Phone: [place] [phone] ) ([id number]) Patient Education no information no information MD JON LR [phone] (Work Phone: [place] [phone] ) ([id number]) Patient referral no information no information MD JON LR [address] [place] [address] (Work Phone: [place] [phone] ) ([id number]) Goals Patient Goal Desired Goal no information no information Social History Normalized Code Original Code Date Value Tobacco smoking status Tobacco smoking status no information Smokes tobacco daily NHIS NHIS (finding) no information no information 09-12-2019 Denies Use no information no information 09-12-2019 No no information no information 09-12-2019 Denies no information no information 09-12-2019 Current Everyda y Smoker no information no information 09-12-2019 Cigarettes Sex Assigned At Sex Assigned At no information F emale Functional Status No Information Mental Status Status Assessment Result Care Provider Facility Cognitive function [place] [address] ([place] [facility] Understands Concepts Phone: ) Hospital ([phone]) Encounters Encounter Normalized Encounter Encounter Diagnosis Care Provi yoly Organization Date Type 09-12-2019 Emergency department no information (no phone) [facility] [place] - patient visit [facility] (no phone) 09-12-2019 09-12-2019 Emergency department no information WAI BUSH DO (no [facility] patient visit phone) [facility] (no phone) 07-19-2019 Patient encounter no information (no phone) [facility] (no phone) 04-22-2019 Patient encounter no information no name no or ganization name procedure 11-03-2018 Patient encounter no information no name no or ganization name procedure 08-30-2018 Patient encounter no information no name no or ganization name procedure 08-30-2018 Patient encounter no information no name no or ganization name procedure Medical Equipment The data below is from unstructured sourcesNo Medical Equipment Information available Payers Normalized Payer Value Self-pay no information [id number]) Evaluation note Note Type Note Facility Evaluation No Assessments Information Available A scension note Via [facility] ([id number]) Advance Directives Advance Directive Response Recorded Date/Time Advance Directives No Ma y 2019 3:30pm Resuscitation Status Full Code September 12, 2019 3:30pm Chief Complaint and Reason for Visit Chief Complaint Dizziness/Syncope Reason for Visit [id number] Additional Source Comments This clinical document has been generated using [employer] software that has been certified by the Office of the National Coordinator for Health Information Technology (ONC 15.99.04.3023.Diam.31.00.0.831099) and the National Committee for Artist Agent (NCQA, as an eMeasure certified technology). FOR RECORDS PERTAINING TO PATIENTS WHO ARE OR HAVE BEEN ENROLLED IN A CHEMICAL D EPENDENCY/SUBSTANCE ABUSE PROGRAM, SOME INFORMATION MAY BE OMITTED. This clinica l summary was aggregated from multiple sources. Caution should be exercised in using it in the provision of clinical care. This summary normalizes information from multiple sources, and as a consequence, information in this document may ma terially change the coding, format and clinical context of patient data. In mario tion, data may be omitted in some cases. CLINICAL DECISIONS SHOULD BE BASED ON T HE PRIMARY CLINICAL RECORDS. [facility] [employer] [facility]. provides no warranty or guara ntee of the accuracy or completeness of information in this document.The followi ng information is based on time limited clinical information
--- OUTSIDE RECORDS SUMMARY | 2019-09-12 19:59 | XMS REPORT | Continuity of Care Document ---
Author Organization Unknown Address Unknown Phone Unavailable Allergies Active Description Code Type Severity Reaction Onset Reported/Identified Relationship to Patient Clinical Status Yes No Known Drug Allergies [id number] Drug Allergy Unknown N/A 04/17/2014 Yes codeine [id number] Drug Allergy Unknown N/A 09/12/2019 Medications There is no data. Problems Date Dx Coded Attending Type Code Diagnosis Diagnosed By 04/18/2014 DANIEL SCHUMACHER [employer]ST[employer]ER Ot 379.91 04/18/2014 DANIEL SCHUMACHER [employer] INSTALLER Ot 379.91 04/26/2014 DANIEL SCHUMACHER [employer]OR INSTALLER Ot 379.91 04/26/2014 DANIEL SCHUMACHER [employer]OR INSTALLER Ot 379.91 04/26/2014 DANIEL SCHUMACHER [employer]OR INSTALLER Ot 379.91 05/14/2014 DANIEL SCHUMACHER [employer]OR INSTALLER Ot 379.91 09/15/2018 JON COULTER MD Ot G44.049 CHRONIC PAROXYSMAL HEMICRANIA, NOT INTRA 09/15/2018 JON COULTER MD Ot Z82.49 FAMILY HX OF ISCHEM HEART DIS AND OTH DI Procedures There is no data. Results Test Result Range CULTURE, ANAEROBIC AND AEROBIC - 0 10:14 CULTURE, ANAEROBIC BACTERIA W/GRAM STAIN SEE NOTE NRG CULTURE, AEROBIC BACTERIA SEE NOTE NRG Complete urinalysis with reflex to cultu re - 09/12/19 15:30 Urine color determination YELLOW NRG Urine clarity determination SL CLOUDY N RG Urine pH measurement by test strip 6.0 5-9 Specific gravity of urine by test strip 1.020 1.016-1.022 Urine protein assay by test strip, semi-quantitative NEGATIVE NEGATIVE Urine glucose detection by automated test strip NE GATIVE NEGATIVE Erythrocytes detection in urine sediment by light micr oscopy NEGATIVE NEGATIVE Urine ketones detection by automated test strip 2+ NEGATIVE Urine nitrite detection by test strip NEGATIVE NEGATIVE Urine total bilirubin detection by test strip NEGA TIVE NEGATIVE Urine urobilinogen measurement by automated test strip (mass/volume) 0.2 mg/dL < = 1.0 Urine leukocyte esterase detection by dipstick 3+ NEGATIVE Automated urine sediment erythrocyte cou nt by microscopy (number/high power field) NONE NRG Automated urine sediment leukocyte count by microscopy (number/high power field) [HPF] NRG Bacteria detection in urine sediment by light microsco py MODERATE NRG Squamous epithelial cells detection in u rine sediment by light microscopy 25-50 NRG Crystals detection in urine sediment by light microsco py NONE NRG Casts detection in urine sediment by light microscopy NONE NRG Mucus detection in urine sediment by light microscopy MODERATE NRG Complete urinalysis with reflex to culture YES NRG Complete blood count (CBC) with automate d white blood cell (WBC) differential - 09/12/19 15:50 Blood leukocytes automated count (number/volume) 10.8 10*3/uL 4.3-11.0 Blood erythrocytes automated count (number/volume) 3.94 10*6/uL 4.35-5.85 Venous blood hemoglobin measurement (mass/volume) 11.6 g/dL 11.5-16.0 Blood hematocrit (volume fraction) 34 % 35-52 Automated erythrocyte mean corpuscular volume 87 [ foz_us] 80-99 Automated erythrocyte mean corpuscular h emoglobin (mass per erythrocyte) 29 pg 25-34 Automated erythrocyte mean corpuscular h emoglobin concentration measurement (mass/volume) 34 g/dL 32-36 Automated erythrocyte distribution width ratio 14. 3 % 10.0- 14.5 Automated blood platelet count (count/volume) 205 10*3/uL 130-400 Automated blood platelet mean volume measurement 11.5 [foz_us] 7.4-10.4 Automated blood neutrophils/100 leukocytes 84 % 42-75 Automated blood lymphocytes/100 leukocytes 12 % 12-44 Blood monocytes/100 leukocytes 4 % 0-12 Automated blood eosinophils/100 leukocytes 1 % 0-10 Automated blood basophils/100 leukocytes 0 % 0-10 Blood neutrophils automated count (number/volume) 9.1 10*3 1.8-7.8 Blood lymphocytes automated count (number/volume) 1.3 10*3 1.0-4.0 Blood monocytes automated count (number/volume) 0. 8 10*3 0.0-1.0 Automated eosinophil count 0.1 10*3/uL 0 .0-0.3 Automated blood basophil count (count/volume) 0.0 10*3/uL 0.0-0.1 Comprehensive metabolic panel - 09/12/19 15:50 Serum or plasma sodium measurement (moles/volume) 137 mmol/L 135-145 Serum or plasma potassium measurement (moles/volume) 3.8 mmol/L 3.6-5.0 Serum or plasma chloride measurement (moles/volume) 103 mmol/L 98-107 Carbon dioxide 21 mmol/L 21-32 Serum or plasma anion gap determination (moles/volume) 13 mmol/L 5-14 Serum or plasma urea nitrogen measurement (mass/volume ) 6 mg/dL 7-18 Serum or plasma creatinine measurement (mass/volume) 0.41 mg/dL 0.60-1.30 Serum or plasma urea nitrogen/creatinine mass ratio 15 NRG Serum or plasma creatinine measurement w ith calculation of estimated glomerular filtration rate > NRG Serum or plasma glucose measurement (mass/volume) 77 mg/dL 70-105 Serum or plasma calcium measurement (mass/volume) 8.3 mg/dL 8.5-10.1 Serum or plasma total bilirubin measurement (mass/volu me) 0.3 mg/dL 0.1-1.0 Serum or plasma alkaline phosphatase henry surement (enzymatic activity/volume) 66 U/L 40-136 Serum or plasma aspartate aminotransfera se measurement (enzymatic activity/volume) 14 U/L 5-34 Serum or plasma alanine aminotransferase measurement (enzymatic activity/volume) 7 U/L 0-55 Serum or plasma protein measurement (mass/volume) 6.2 g/dL 6.4-8.2 Serum or plasma albumin measurement (mass/volume) 3.5 g/dL 3.2-4.5 CALCIUM CORRECTED 8.7 mg/dL 8.5-10.1 Encounters ACCT No. Visit Date/Time Discharge Status Pt. Type Provider Facility Loc./Unit Complaint [id number] 04/22/2019 11:40:00 04/22/2019 23:59: 59 CLS Outpatient NICOLAS DE LA O LAC [facility] [id number] 07/19/2019 09:20:00 Document Registration [id number] 09/12/2019 15:24:00 020 16:43:00 DIS Emergency ELEAZAR CARRENO DO Via [facility] ER FS MIGRAINE,FAINTING [id number] 08/30/2018 15:25:00 019 23:59:59 CLS Outpatient MARYLIN RAI, JON pratt [facility] RAD CHRONIC PAROXYSMAL KENYA CRANIA [id number] 04/17/2014 16:52:00 014 23:59:59 CLS Outpatient DANIEL SCHUMACHER [facility] RAD
== END 2019-09-12 16:43 | disposition left against medical advice (07) ==
LOC: EDUNIT# 15:22 → ER FS 15:24
DX: O99.352 Diseases of the nervous system complicating pregnancy, second trimester (principal); G43.909 Migraine, unspecified, not intractable, without status migrainosus; O26.892 Other specified pregnancy related conditions, second trimester; R55 Syncope and collapse; O23.42 Unspecified infection of urinary tract in pregnancy, second trimester; Z3A.23 23 weeks gestation of pregnancy; Z88.5 Allergy status to narcotic agent
CPT/HCPCS: 36415; 70450; 72125; 80053; 81000; 85025; 87088; 96374; 96375